=== PATIENT | female | born 1950 | race Caucasian/White ===

== ENCOUNTER 2024-11-26 08:29 | Emergency (ER) | payer MEDICARE, SELFPAY ==
[2024-11-26 08:37] VITALS: BP 144/103; PULSE 95; TEMP 37.2; O2SAT 95; BMI 34.2
[2024-11-26 08:42] VITALS: O2SAT 98
--- NOTE | 2024-11-26 08:48 | XR_ITS ---
The [address] [address] Patient Name: MOY JARQUIN MRN: [id number] date: 1950 Sex: F Assigned Patient Location: ED.MAIN Current Patient Location: ED.MAIN Accession/Order Number: [id number] Exam Date: 11/26/2024 09:30 Report Date: 11/26/2024 09:31 At the request of: ASHLY THOMAS MD Procedure: XR chest 1V Plain film chest Single view HISTORY: Cough for 2 weeks COMPARISON: 10/23/2020 FINDINGS: SUPPORT DEVICES: None POSTSURGICAL CHANGES: None HEART: Within normal limits PULMONARY JONAS: Within normal limits MEDIASTINUM: Unremarkable LUNGS AND PLEURA: No acute lung process, pleural effusion or pneumothorax identified. Minor interstitial changes BONY STRUCTURES: Intact ADDITIONAL FINDINGS None XR/XR chest 1V IMPRESSION: No acute process. Impression dictated by: Alejandro Middleton M.D. 11/26/2024 9:31 AM Dictation Location: [employer] Electronically authenticated by: [id number] Y Date: 11/26/2024 09:31
--- NOTE | 2024-11-26 08:50 | ED.GENADUL1 ---
HPI HPI - General Adult General Chief complaint: Upper Respiratory Infection Stated complaint: URTI COMPLAINTS Time Seen by Provider: 11/26/24 08:41 Source: patient Mode of arrival: Wheelchair Limitations: no limitations History of Present Illness HPI narrative: 74-year-old female presents to the emergency department for chief complaint of cough which she has had for 2 weeks. It has been nonproductive and she has not had a fever. No hemoptysis. She states several family members were ill. Related Data Home Medications �Medication �Instructions �Recorded �Confirmed furosemide 20 mg tablet 20 mg PO .q48hr 11/26/24 11/26/24 potassium citrate 10 mEq (1,080 10 meq PO DAILY 11/26/24 11/26/24 mg) tablet,extended release valsartan 40 mg tablet 40 mg PO BID 11/26/24 11/26/24 Previous Rx's �Medication �Instructions �Recorded sulfamethoxazole 800 1 tab PO BID 10 days #20 tabs 11/26/24 mg-trimethoprim 160 mg tablet (Bactrim DS) Allergies Allergy/AdvReac Type Severity Reaction Status Date / Time erythromycin base Allergy Mild Hives Verified 11/26/24 08:41 Iodinated Contrast Media Allergy Mild Hives Verified 11/26/24 08:41 Penicillins Allergy Mild Hives Verified 11/26/24 08:41 Opioid HPI Opioid Management Most Recent Opioid Data: Last Pain Scale 6 Today, 08:37 Review of Systems ROS Narrative A ten point review of systems is negative except as noted above. PFSH PFSH Social History Little interest or pleasure in doing things: not at all Feeling down, depressed, or hopeless: not at all Exam Narrative Exam Narrative: Nurses note and vital signs reviewed and patient is not hypoxic. General: The patient appears well and in no apparent distress. Patient is resting comfortably on cart. Skin: Warm, dry, no pallor noted. There is no rash noted. Head: Normocephalic, atraumatic Eye: Normal conjunctiva, no drainage Ears, Nose, Mouth, and Throat: oral mucosa is moist. Nares patent. Cardiovascular: Regular Rate and Rhythm Respiratory: Patient is in no distress, no accessory muscle use, lungs are clear to auscultation, no wheezing, rales or rhonchi Back: non-tender GI: Soft and nontender Musculoskeletal: The patient has no evidence of calf tenderness, no pitting edema, symmetrical pulses noted bilaterally Neurological: A&O, normal speech Psychiatric: Cooperative Constitutional Vital Signs, click to edit/add: Last Vital Signs Temp 98.9 F 11/26/24 08:37 Pulse 95 H 11/26/24 08:37 Resp 18 11/26/24 08:37 BP 144/103 H 11/26/24 08:37 Pulse Ox 98 11/26/24 08:42 O2 Del Method Room Air 11/26/24 08:42 Course Vital Signs Vital signs: Vital Signs Temperature 98.9 F 11/26/24 08:37 Pulse Rate 95 H 11/26/24 08:37 Respiratory Rate 18 11/26/24 08:37 Blood Pressure 144/103 H 11/26/24 08:37 Pulse Oximetry 95 11/26/24 08:37 Oxygen Delivery Method Room Air 11/26/24 08:37 Temperature 98.9 F 11/26/24 08:37 Pulse Rate 95 H 11/26/24 08:37 Respiratory Rate 18 11/26/24 08:37 Blood Pressure 144/103 H 11/26/24 08:37 Pulse Oximetry 98 11/26/24 08:42 Oxygen Delivery Method Room Air 11/26/24 08:42 Medical Decision Making MDM Narrative Medical decision making narrative: Her chest x-ray is negative. I suspect that her cough is being caused by the valsartan and she will speak to her family doctor. In the event that this is infectious she is prescribed Bactrim. She was cautioned however that it is more likely the medication. Treatment diagnosis and follow-up were discussed with the patient. Differential Diagnosis Differential Diagnosis: URI, pneumonia, medication side effect Imaging Data Chest x-ray: Radiologist's impression: ITS Impressions Chest X-Ray 11/26/24 08:48 IMPRESSION: No acute process. Impression dictated by: Alejandro Middleton M.D. 11/26/2024 9:31 AM Dictation [facility] Electronically authenticated by: [id number] Y Date: 11/26/2024 09:31 Discharge Plan Discharge Chief Complaint: Upper Respiratory Infection Clinical Impression: Medication side effect Patient Disposition: Home, Self-Care Time of Disposition Decision: 10:03 Condition: Good Mode of Transportation: Private Vehicle Prescriptions / Home Meds: New sulfamethoxazole-trimethoprim [Bactrim DS] 800-160 mg tablet 1 tab PO BID 10 Days Qty: 20 0RF No Action furosemide 20 mg tablet 20 mg PO .q48hr potassium citrate 10 mEq (1,080 mg) tablet extended release 10 meq PO DAILY valsartan 40 mg tablet 40 mg PO BID Print Language: Slovenian Instructions: Adverse Drug Reaction (ED) Additional Instructions: I suspect that the valsartan is causing your cough. Speak to your prescribing physician about that issue. Referrals: Tamica Amezquita NP [Primary Care Provider, Family Practice] - 1 week
== END 2024-11-26 10:22 | disposition home or self-care (01) ==
PROVIDERS: Emergency Provider Emergency Medicine; PCP Nurse Practitioner
DX: R05.9 Cough, unspecified (principal); T46.5X5A Adverse effect of other antihypertensive drugs, initial encounter
CPT/HCPCS: 71045; 99283

== ENCOUNTER 2024-12-02 08:39 | Outpatient (OUT) | payer MEDICARE, SELFPAY ==
--- OUTSIDE RECORDS SUMMARY | 2023-07-14 05:00 | XMS_ITS ---
Author Organization [facility] Address [address] [place] [address] Care Team Providers Care Advertising Operations Manager Name Role Phone Yasmany, August Unavailable [phone] REASON FOR VISIT Est Care Encounters Encounter Location Date Provider Diagnosis [address] [place] [address] 07/14/2023August Yasmany Plan Of Treatment No Information Progress Notes * Sneha GRISSOMDOB:1950 ( 74 yo F)Acc No.[id number]:07/14/2023 Progress Notes Patient: Sneha MORALES Provider: CONCETTA Fraga :1950 A ge:72 Y S ex:Female Date:07/14/2023 Address:[address], [address], [facility] Subjective: * Chief Complaints: * 1 . Est Care. * Medical History: Objective: * Vitals: Assessment: Plan: * Treatment: * Care Plan Details* * Electronic signature of TARIQ Acuña, CONCETTA on 12/02/2024 at 08:45 AM EDT Sign off status: Pending * Provider: CONCETTA Fraga Date: 0 07/14/2023 Generated for Denise la/Alfonso/Aditiitting on: 0 12/02/2024 08:45 AM EDT
--- OUTSIDE RECORDS SUMMARY | 2023-07-14 05:00 | XMS_ITS ---
Author Organization [facility] Address [address] [address] Care Team Providers Care Hand Violin Maker Name Role Phone Migration, Provider Unavailable Unavailable REASON FOR VISIT Est Care Encounters Encounter Location Date Provider Diagnosis [facility] - [address] [place] [address] 07/14/2023 Provider Migration Plan Of Treatment No Information Progress Notes * Sneha GRISSOMDOB:1950 ( 74 yo F)Acc No.[id number]:07/14/2023 Progress Notes Patient: Sneha MORALES Provider: :1950 A ge:72 Y S ex:Female Date:07/14/2023 Address:[facility] [address] Subjective: * Chief Complaints: * 1 . Est Care. * Medical History: Objective: * Vitals: Assessment: Plan: * Treatment: * Care Plan Details* * Electronic signature of Prov ider Migration on 12/02/2024 at 08:45 AM EDT Sign off status: Pending * Provider: Date: 07/14/2023 Generated for Denise la/Alfonso/Ericksmitting on: 12/02/2024 08:45 AM EDT
--- OUTSIDE RECORDS SUMMARY | 2023-11-09 06:25 | XMS_ITS ---
Author Organization [facility] Address [address] [place] [address] Care Team Providers Care Edge Sander Name Role Phone NONE, NONE Primary Care Provider TAE Adamson Unavailable [phone] ALLERGIES No Known Allergies REASON FOR VISIT Patient here for metal patch application MEDICATIONS Medication SIG (Take, Route, Frequency, Duration) Notes Start Date End Date Status Metoprolol Tartrate 50 MG 1 tablet with food Orally Twice a day Active glipiZIDE 5 MG 1 tablet 30 minutes before breakfast Orally Once a day Active Atorvastatin Calcium 80 MG 1 tablet Oral ly Once a day Active Clopidogrel Bisulfate 75 MG 1 tablet Ora lly Once a day Active Isosorbide Dinitrate 30 MG 1 tablet Oral ly Twice a day Active Famotidine Active amLODIPine Besylate 5 MG 1 tablet Orally Once a day Active Albuterol Sulfate HFA 108 (90 Base) MCG/ACT 1 puff as needed Inhalation every 4 hrs Active Baby Aspirin Active SOCIAL HISTORY Tobacco Use: Social History Observation Description Date Details (start date - stop date) Never Smoker NA - NA Sex Assigned At : Social History Observation Description Sex Assigned At Unknown Tobacco Use/Smoking Question Answer Notes Are you a nonsmoker Alcohol Screen (Audit-C) Question Answer Notes Did you have a drink contain ing alcohol in the past year? Yes How often did you have a dri nk containing alcohol in the past year? 2 to 4 times a month (2 points) How many drinks did you have on a typical day when you were drinking in the past year? 1 or 2 drinks (0 point) How often did you have 6 or more drinks on one occasion in the past year? Never (0 point) Points 2 Interpretation Negative VITAL SIGNS Temperature 97.8 degrees Fahrenheit 11/09/19 24 Blood pressure systolic 190 mm Hg 11/09/19 24 Blood pressure diastolic 84 mm Hg 024 Heart Rate 69 /min 11/09/2023 Height 59 in 11/09/2023 Weight 155 lbs 11/09/2023 BMI 31.3 kg/m2 11/09/2023 Oximetry 98 % 11/09/2023 Taken by TB Encounters Encounter Location Date Provider Diagnosis [facility] [address] [place] [address] 11/09/2023 TAE FROST Cardiac murmur, unspecified R01.1 ; Other hyperlipidemia E78.49 ; Essential (primary) hypertension I10 and Allergic contact dermatitis, unspecified cause L23.9 ASSESSMENTS Encounter Date Diagnosis Assessment Notes Treatment Notes Treatment Clinical Notes Section Notes 11/09/2023 Cardiac murmur, unspecified (ICD-10 - R01.1) Follow up on the nickel aller 11/09/2023 Other hyperlipidemia (ICD-10 - E78.49) per pcp 11/09/2023 Essential (primary) hypertension (ICD-10 - I10) Defer management to pt's PCP 11/09/2023 Allergic contact dermatitis, unspecified cause (ICD-10 - L23.9) Patient has a history of nickel allergy and previous bunion surgery, which required metal removal due to allergic reaction. The patient is scheduled for heart valve surgery, and the surgeon needs to know about any potential metal allergies. Plan to perform a comprehensive metal allergy testing to identify any metals the patient cannot tolerate. Inform the surgeon of any positive results. PLAN OF TREATMENT Next Appt Details Follow Up: 4 Weeks, Reason: Progress Notes * Sneha GRISSOMDOB:1950 ( 73 yo F)Acc No.[id number]:11/09/2023 PATCH TEST Patient: Sneha GRISSOM Provider: Tae Frost MD :1950 Age:73 Y Sex:Female Date:11/09/2023 Address:[address], [address], [facility] Subjective: * Chief Complaints: * Patient here for metal patch application * HPI: Constitutional: The patient, Sneha, presents today for evaluation of potential metal allergies in preparation for an upcoming heart valve surgery. She has a history of metal allergy, specifically to nickel, which was discovered during a previous bunion surgery. The nickel allergy led to complications, requiring the removal of the metal implant. Following the bunion surgery, Sneha experienced an unexplained loss of function in her other leg, which her foot surgeon could not explain. She believes her knowledge of reflexology contributed to the eventual improvement in her leg function. 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 Sneha reports taking a night term medication before the appointment but denies any stress or anxiety related to doctor's appointments. * ROS: Gen: No Fevers, chills or night sweats Nose: (+) Runny nose, sneezing and congestion Eyes: (+) Itchy and watery eyes with redness Ears: Denies Ear Fullness and pain Lungs: Denies Coughing or wheezing Skin: Denies new rashes. * Medical History: * Surgical History: Bunion Removal * Hospitalization/Major Diagno stic Procedure: Denies Past Hospitalization * Family History: Father: . Mother: . 3 brother(s) . 1 daughter(s) . . * Social History: Tobacco Use: Tobacco Use/Smoking Are you a nonsmoker Drugs/Alcohol: Drugs Have you used drugs other than those for medical reasons in the past 12 months? No Alcohol Screen (Audit-C) Did you have a drink containing alcohol in the past year? Yes How often did you have a drink containing alcohol in the past year? 2 to 4 times a month (2 points) How many drinks did you have on a typical day when you were drinking in the past year? 1 or 2 drinks (0 point) How often did you have 6 or more drinks on one occasion in the past year? Never (0 point) Points 2 Interpretation Negative Caffeine Intake: none, 1-2 cups per day Do you smoke marijuana?: Denies. Do you drink alcohol?: Yes, Socially. * Medications: TakingBaby Aspirin Albuterol Sulfate HFA 108 (90 Base) MCG/ACT Aerosol Solution 1 puff as needed Inhalation every 4 hrs amLODIPine Besylate 5 MG Tablet 1 tablet Orally Once a day Famotidine Isosorbide Dinitrate 30 MG Tablet 1 tablet Orally Twice a day Clopidogrel Bisulfate 75 MG Tablet 1 tablet Orally Once a day Atorvastatin Calcium 80 MG Tablet 1 tablet Orally Once a day glipiZIDE 5 MG Tablet 1 tablet 30 minutes before breakfast Orally Once a day Metoprolol Tartrate 50 MG Tablet 1 tablet with food Orally Twice a day Medication List reviewed and reconciled with the patientTaking Baby Aspirin Taking Albuterol Sulfate HFA 108 (90 Base) MCG/ACT Aerosol Solution 1 puff as needed Inhalation every 4 hrs Taking amLODIPine Besylate 5 MG Tablet 1 tablet Orally Once a day Taking Famotidine Taking Isosorbide Dinitrate 30 MG Tablet 1 tablet Orally Twice a day Taking Clopidogrel Bisulfate 75 MG Tablet 1 tablet Orally Once a day Taking Atorvastatin Calcium 80 MG Tablet 1 tablet Orally Once a day Taking glipiZIDE 5 MG Tablet 1 tablet 30 minutes before breakfast Orally Once a day Taking Metoprolol Tartrate 50 MG Tablet 1 tablet with food Orally Twice a day Medication List reviewed and reconciled with the patient * Allergies: N.K.D.A.no[Allergies Verified] Objective: * Vitals: Temp:97.8F, HR:69/min, BP:190/84mm Hg, Wt:155lbs, BMI:31.3, Ht: 59 in, Oxygen sat %:98% Taken by TB. * Examination: Functional Status: GEN: A&Ox3, NAD H EENT: EOM intact and trachea midline L ungs: CTA without wheezing or rhonchi H eart: RRR w/out murmurs L ower Extremities: No Lower extremity edema. Assessment: * Assessment: 1. Cardiac murmur, unspecified - R01.1 (Primary), Follow up on the nickel aller 2. Other hyperlipidemia - E78.49, per pcp 3. Essential (primary) hypertension - I10, Defer management to pt's PCP 4. Allergic contact dermatitis, unspecified cause - L23.9, Patient has a history of nickel allergy and previous bunion surgery, which required metal removal due to allergic reaction. The patient is scheduled for heart valve surgery, and the surgeon needs to know about any potential metal allergies. Plan to perform a comprehensive metal allergy testing to identify any metals the patient cannot tolerate. Inform the surgeon of any positive results. Plan: * Treatment: * Procedure Codes: * Preventive Medicine: Counseling: BP Management: REFERRAL TO ALTERNATIVE / PRIMARY CARE PROVIDER: Defer to primary physician for care BMI Care goal follow-up plan: Above Normal BMI Follow-up Defer to primary care provider * Follow Up: 4 Weeks * Images * [id number] [id number] * Sign off status: Completed true * Provider: Tae Frost MD Date: 11/09/2023 History and Physical Notes * HPI (History of Present Illness) Category Sub-Category Detail Notes Category Not es Constitutional The patient, Sneha, presents today for evaluation of potential metal allergies in preparation for an upcoming heart valve surgery. She has a history of metal allergy, specifically to nickel, which was discovered during a previous bunion surgery. The nickel allergy led to complications, requiring the removal of the metal implant. Following the bunion surgery, Sneha experienced an unexplained loss of function in her other leg, which her foot surgeon could not explain. She believes her knowledge of reflexology contributed to the eventual improvement in her leg function. 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 Sneha reports taking a night term medication before the appointment but denies any stress or anxiety related to doctor's appointments. Examination Category Sub-Category Detail Notes Category Not es Functional Status GEN: A&Ox3, NAD HEENT: EOM intact and trachea midline Lungs: CTA without wheezing or rhonchi Heart: RRR w/out murmurs Lower Extremities: No Lower extremity edema
--- OUTSIDE RECORDS SUMMARY | 2023-11-11 06:25 | XMS_ITS ---
Author Organization [facility] Address [address] [facility] [place] [address] Care Team Providers Care Freelance Patternmaker Name Role Phone NONE, NONE Primary Care Provider TAE Adamson Unavailable [phone] ALLERGIES No Known Allergies REASON FOR VISIT Patient is here for a 30 patch removal. She will discuss results with Dr. Tae Frost at a later date MEDICATIONS Medication SIG (Take, Route, Frequency, Duration) Notes Start Date End Date Status Isosorbide Dinitrate 30 MG 1 tablet Oral ly Twice a day Active Clopidogrel Bisulfate 75 MG 1 tablet Ora lly Once a day Active Atorvastatin Calcium 80 MG 1 tablet Oral ly Once a day Active glipiZIDE 5 MG 1 tablet 30 minutes before breakfast Orally Once a day Active Metoprolol Tartrate 50 MG 1 tablet with food Orally Twice a day Active Baby Aspirin Active Albuterol Sulfate HFA 108 (90 Base) MCG/ACT 1 puff as needed Inhalation every 4 hrs Active amLODIPine Besylate 5 MG 1 tablet Orally Once a day Active Famotidine Active VITAL SIGNS Temperature 97.1 degrees Fahrenheit 11/11/19 24 Blood pressure systolic 156 mm Hg 11/11/19 24 Blood pressure diastolic 69 mm Hg 024 Heart Rate 67 /min 11/11/2023 Height 59 in 11/11/2023 Weight 155 lbs 11/11/2023 BMI 31.3 kg/m2 11/11/2023 Oximetry 97 % 11/11/2023 Taken by GERI Encounters Encounter Location Date Provider Diagnosis [facility] [address] [place] [address] 11/11/2023 TAE FROST Allergic contact dermatitis, unspecified cause L23.9 ASSESSMENTS Encounter Date Diagnosis Assessment Notes Treatment Notes Treatment Clinical Notes Section Notes 11/11/2023 Allergic contact dermatitis, unspecified cause (ICD-10 - L23.9) PLAN OF TREATMENT No Information Progress Notes * Sneha GRISSOMDOB:1950 ( 73 yo F)Acc No.[id number]:11/11/2023 Removal of Patch test Patient: Sneha GRISSOM Provider: Tae Frost MD :1950 Age:73 Y Sex:Female Date:11/11/2023 Address:[address] [place] [address] , [address] Subjective: * Chief Complaints: * 1. Patient is here for a 30 patch removal. She will discuss results with Dr. Tae Frost at a later date. * Medical History: Heart Disease, Diabetes, Hypercholesterolemia, Hypertension. * Medications: Taking Baby Aspirin , Taking Albuterol Sulfate HFA 108 (90 Base) MCG/ACT Aerosol Solution 1 puff as needed Inhalation every 4 hrs , Taking amLODIPine Besylate 5 MG Tablet 1 tablet Orally Once a day , Taking Famotidine , Taking Isosorbide Dinitrate 30 MG Tablet 1 tablet Orally Twice a day , Taking Clopidogrel Bisulfate 75 MG Tablet 1 tablet Orally Once a day , Taking Atorvastatin Calcium 80 MG Tablet 1 tablet Orally Once a day , Taking glipiZIDE 5 MG Tablet 1 tablet 30 minutes before breakfast Orally Once a day , Taking Metoprolol Tartrate 50 MG Tablet 1 tablet with food Orally Twice a day , Medication List reviewed and reconciled with the patient * Allergies: N.K.D.A. Objective: * Vitals: Temp:97.1F, HR:67/min, BP:156/69mm Hg, Wt:155lbs, BMI:31.3, Ht: 59 in, Oxygen sat %:97% Taken by GERI. Assessment: * Assessment: 1. Allergic contact dermatitis, unspecified cause - L23.9 Plan: * Treatment: * Procedure Codes: 98535 PRICK TESTS * Images * [id number] [id number] [id number].jpg * Sign off status: Completed true * Provider: Tae Frost MD Date: 11/11/2023
--- OUTSIDE RECORDS SUMMARY | 2023-11-12 06:25 | XMS_ITS ---
Author Organization [facility] Address [address] [facility] [place] [address] Care Team Providers Care Scientific Specialist Name Role Phone NONE, NONE Primary Care Provider TAE Adamson Unavailable [phone] ALLERGIES No Known Allergies REASON FOR VISIT Patient is here for 30 Metal Patch Final Reading possible contact dermatitis MEDICATIONS Medication SIG (Take, Route, Frequency, Duration) Notes Start Date End Date Status Isosorbide Dinitrate 30 MG 1 tablet Oral ly Twice a day Active Atorvastatin Calcium 80 MG 1 tablet Oral ly Once a day Active Clopidogrel Bisulfate 75 MG 1 tablet Ora lly Once a day Active Metoprolol Tartrate 50 MG 1 tablet with food Orally Twice a day Active glipiZIDE 5 MG 1 tablet 30 minutes before breakfast Orally Once a day Active Albuterol Sulfate HFA 108 (90 Base) MCG/ACT 1 puff as needed Inhalation every 4 hrs Active Baby Aspirin Active Famotidine Active amLODIPine Besylate 5 MG 1 tablet Orally Once a day Active VITAL SIGNS Temperature 97.6 degrees Fahrenheit 11/12/19 24 Blood pressure systolic 166 mm Hg 11/12/19 24 Blood pressure diastolic 89 mm Hg 024 Heart Rate 67 /min 11/12/2023 Height 59 in 11/12/2023 Weight 155 lbs 11/12/2023 BMI 31.3 kg/m2 11/12/2023 Oximetry 97 % 11/12/2023 Taken by GERI Encounters Encounter Location Date Provider Diagnosis [facility] [address] [facility] [place] [address] 11/12/2023 TAE FROST Cardiac murmur, unspecified R01.1 ; Other hyperlipidemia E78.49 ; Essential (primary) hypertension I10 and Allergic contact dermatitis, unspecified cause L23.9 ASSESSMENTS Encounter Date Diagnosis Assessment Notes Treatment Notes Treatment Clinical Notes Section Notes 11/12/2023 Cardiac murmur, unspecified (ICD-10 - R01.1) not allergic to seth. allergic to rhodium. Would avoid this. 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 She should inform her surgeons about the rhodium allergy. Provide her with a list of metals to avoid, including rhodium. Instruct her to take a picture of her back on Thursday and contact the clinic if any new reactions appear. PLAN OF TREATMENT Next Appt Details Follow Up: prn, Reason: Progress Notes * Sneha GRISSOMDOB:1950 ( 73 yo F)Acc No.[id number]:11/12/2023 Patch test Progress Note Patient: Sneha GRISSOM Provider: Tae Frost MD :1950 Age:73 Y Sex:Female Date:11/12/2023 Address:[facility] [address] [place], [place] [address] Subjective: * Chief Complaints: * Patient is here for 30 Metal Patch Final Reading possible contact dermatitis * HPI: Constitutional: The patient, Sneha, presents with a history of metal allergy, specifically mentioning issues with nickel and titanium. She reports having rods and sayda placed in her toe, which subsequently became infected and puss-filled. The infection spread, leading to the removal of the rods and sayda. Sneha also mentions experiencing pain in her foot due to a forgotten staple. A patch test was performed, and the only metal that showed a reaction was rhodium. Jay Jay campos also reports difficulty breathing through her nose, particularly on one side. She denies having polyps or previous sinus surgery. She has experienced this nasal breathing issue for much of her life and sometimes struggles to take a deep breath through her nose. * ROS: Gen: No Fevers, chills or night sweats Nose: (+) Runny nose, sneezing and congestion Eyes: (+) Itchy and watery eyes with redness Ears: Denies Ear Fullness and pain Lungs: Denies Coughing or wheezing Skin: Denies new rashes. * Medical History: * Medications: TakingBaby Aspirin Albuterol Sulfate HFA [...] * Allergies: N.K.D.A.no[Allergies Verified] Objective: * Vitals: Temp:97.6F, HR:67/min, BP:166/89mm Hg, Wt:155lbs, BMI:31.3, Ht: 59 in, Oxygen sat %:97% Taken by GERI. * Examination: Functional Status: GEN: A&Ox3, NAD H EENT: EOM intact and trachea midline L ungs: CTA without wheezing or rhonchi H eart: RRR w/out murmurs L ower Extremities: No Lower extremity edema. Assessment: * Assessment: 1. Cardiac murmur, unspecified - R01.1 (Primary), not allergic to seth. allergic to rhodium. Would avoid this. 2. Other hyperlipidemia - E78.49, per pcp 3. Essential (primary) hypertension - I10, manage with meds 4. 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 She should inform her surgeons about the rhodium allergy. Provide her with a list of metals to avoid, including rhodium. Instruct her to take a picture of her back on Thursday and contact the clinic if any new reactions appear. Plan: * Treatment: * Procedure Codes: * Follow Up: prn * Images * [id number] * Sign off status: Completed true * Provider: Tae Frost MD Date: 11/12/2023 History and Physical Notes * HPI (History of Present Illness) Category Sub-Category Detail Notes Category Not es Constitutional The patient, Sneha, presents with a history of metal allergy, specifically mentioning issues with nickel and titanium. She reports having rods and sayda placed in her toe, which subsequently became infected and puss-filled. The infection spread, leading to the removal of the rods and sayda. Sneha also mentions experiencing pain in her foot due to a forgotten staple. A patch test was performed, and the only metal that showed a reaction was rhodium. Sneha also reports difficulty breathing through her nose, particularly on one side. She denies having polyps or previous sinus surgery. She has experienced this nasal breathing issue for much of her life and sometimes struggles to take a deep breath through her nose. Examination Category Sub-Category Detail Notes Category Not es Functional Status GEN: A&Ox3, NAD HEENT: EOM intact and trachea midline Lungs: CTA without wheezing or rhonchi Heart: RRR w/out murmurs Lower Extremities: No Lower extremity edema
--- OUTSIDE RECORDS SUMMARY | 2024-11-20 12:10 | XMS_ITS ---
Author Organization [facility] Address [address] [place] [address] Care Team Providers Care [facility] Name Role Phone Gian Gonzalez Primary Care Provider REASON FOR VISIT HEDIS - LABS - CBP(LVMx1) Encounters Encounter Location Date Provider Diagnosis [facility] [address], [place] [address] 11/20/2024 Gian Bautista Plan Of Treatment No Information Progress Notes * MOY JARQUINDOB:1950 ( 74 yo F)Acc No.[id number]:11/20/2024 Patient: MOY MORALES :1950 A ge:74 Y S ex:Female Address:[facility] [address] [address] * true * Date: Generated for Denise la/Alfonso/eTransmitting on: 0 12/02/2024 08:45 AM EDT
--- OUTSIDE RECORDS SUMMARY | 2024-12-02 08:44 | XMS_ITS | Patient Health Record ---
Author Organization [facility] Address [address] [place] [address] [address] [place] [id number] Support Name Relationship Address Phone Sneha Grissom Guarantor Unknown [phone] Reason For Referral No Information Plan Of Treatment No Information Insurance Providers Payer Name Payer Address Payer Phone Subscriber Number Group Number Insured Name Patient Relationship to Insured Coverage Start Date Coverage End Date [employer] [address] [address] [place] [address] [id number] Sneha Grissom Self - patient is the insured
--- OUTSIDE RECORDS SUMMARY | 2024-12-02 08:44 | XMS_ITS | Clinical Summary ---
Author Organization [facility] Address [address] [place] [id number] Care Team Providers Care Battery Plate Remover Name Role Phone Pcp, No Primary Care Provider Unavailabl Channing Fisher Unavailable Unavailable Allergies Active Allergy Reactions Criticality Noted Date Comments Erythromycin Rash Low 12/08/2016 Gabapentin 04/02/2024 Brain fog, patient felt like she was drunk Iodine Rash Low 11/07/2020 Penicillins Rash Low 06/18/2013 Medications amLODIPine (Norvasc) 5 MG tablet Take 1 tablet (5 mg total) by mouth 1 (one) time each day. 3 Active atorvastatin (Lipitor) 80 MG tablet Take 1 tablet (80 mg total) by mouth 1 (one) time each day. 4 Active clopidogrel (Plavix) 75 MG tablet Take 1 tablet (75 mg total) by mouth 1 (one) time each day. 4 Active famotidine (Pepcid) 20 MG tablet Take 1 tablet (20 mg total) by mouth in the morning and 1 tablet (20 mg total) before bedtime. 3 Active glipiZIDE (Glucotrol) 5 MG tablet TAKE 1 TABLET BY MOUTH TWICE DAILY. DO NOT TAKE THIS WITH JARDIANCE 3 Active losartan (Cozaar) 25 MG tablet Take 1 tablet (25 mg total) by mouth 1 (one) time each day. 4 Active isosorbide mononitrate ER (Imdur) 30 MG 24 hr tablet Take 1 tablet (30 mg total) by mouth 1 (one) time each day. 3 Active metoprolol succinate XL (Toprol-XL) 50 MG 24 hr tablet Take 1 tablet (50 mg total) by mouth 1 (one) time each day. 3 Active nitroglycerin (Nitrostat) 0.4 MG SL tablet TAKE NEEDED FOR CHEST PAIN UP TO 3 DOSES. IMMEDIATELY CALL 911 AFTER FIRST DOSE 4 Active Social History Tobacco Use Types Packs/Day Years Used Date Smoking Tobacco: Never Smokeless Tobacco: Never Tobacco Cessation:Counseling Given: Not Answered Alcohol Use Standard Drinks/Week Comments Yes 0 (1 standard drink = 0.6 oz pur e alcohol) occassional Comments Unknown Sex and Gender Information Value Date Recorded Sex Assigned at Not on file Legal Sex Female 5:46 PM EDT Gender Identity Not on file Sexual Orientation Not on file Last Filed Vital Signs Vital Sign Reading Time Taken Comments Blood Pressure 176/99 04/02/2024 2:42 PM EST Pulse 62 04/02/2024 2:42 PM EST Temperature 36.5 C (97.7 F) 04/02/2024 2:42 PM EST Respiratory Rate 18 04/02/2024 2:42 PM EST Oxygen Saturation 99% 04/02/2024 2:42 PM EST Inhaled Oxygen Concentration - - Weight 72.9 kg (160 lb 11.5 oz) 024 10:47 AM EST Height 144.8 cm (4' 9 ) 04/02/2024 10:4 7 AM EST Body Mass Index 34.78 04/02/2024 10:47 AM EST Plan of Treatment Health Maintenance Due Date Last Done Comments Bone Density Scan 1951 CT Colonography 1951 Cologuard 1950 Colonoscopy 1951 Colorectal Cancer Screening 1951 Diabetes: Hemoglobin A1C 1951 FIT 1951 FOBT 1951 Lipid Panel 1950 Medicare Annual Wellness (AWV) 1950 Sigmoidoscopy 1951 Diabetes: Foot Exam 08/01/1961 Diabetes: Retinopathy Screening 08/01/1961 Depression Screening 1963 DTaP/Tdap/Td Vaccines (1 - Tdap) 08/01/1970 Diabetes: Urine Protein Screening 08/01/1970 Mammogram 1991 Pneumococcal Vaccine: 50+ Ye ars (1 of 1 - PCV) 08/01/2001 Zoster Vaccines (1 of 2) 08/01/2001 COVID-19 Vaccine (1 - 2023-2 5 season) 2024 Influenza Vaccine (#1) 2025 Respiratory Syncytial Virus (RSV) 60 years and older and/or patients (1 - 1-dose 75+ series) 08/01/2026 HPV Vaccines Aged Out No longer eligi ble based on patient's age to complete this topic Hepatitis A Vaccines Aged Out No long er eligible based on patient's age to complete this topic Hepatitis B Vaccines Aged Out No long er eligible based on patient's age to complete this topic Meningococcal B Vaccine Aged Out No l onger eligible based on patient's age to complete this topic Meningococcal Vaccine Aged Out No lewis carlito eligible based on patient's age to complete this topic Respiratory Syncytial Virus (RSV) <20 months Aged Out No longer eligible b ased on patient's age to complete this topic Insurance [employer] MEDICARE [id number] [place] [id number] Care Teams Battery Plate Remover Relationship Specialty Start Date End Date Pcp, No PCP - General 09/08/23 Channing Thornton Nurse Navigator 04/05/24
--- OUTSIDE RECORDS SUMMARY | 2024-12-02 08:45 | XMS_ITS | Encounter Summary ---
Author Organization [facility] Address [address] [place] [address] Phone Care Team Providers Care Shovel Engineer Name Role Phone Unavailable Primary Care Provider Unavailabl e Encounter Details Date Type Department Care Team (Late st Contact Info) Description 10/25/2020 Orders Only [facility] [address] [place] [address] Conversion, Onbase Social History Tobacco Use Types Packs/Day Years Used Date Smoking Tobacco: Never Assessed Comments Unknown Sex and Gender Information Value Date Recorded Sex Assigned at Not on file Legal Sex Female 5:14 AM EST Gender Identity Not on file Sexual Orientation Not on file documented as of this encounter Plan of Treatment Scheduled Orders Name Type Priority Associated Diagnoses Orde r Schedule OUTSIDE LAB SCAN Lab Ordered: 10/25/2020 documented as of this encounter Visit Diagnoses Not on filedocumented in this encounter
--- OUTSIDE RECORDS SUMMARY | 2024-12-02 08:45 | XMS_ITS | Patient Health Record ---
Author Organization UNLISTED FACILITY Address [address] [place] [address] [place] [address] Care Team Providers Care Journeyman Operator Assistant Name Role Phone Gian Gonzalez Primary Care Provider [phone] Trinity Alvarez MD Unavailable Deidre Gaytan Unavailable [phone] Husam Knapp Unavailable Jo Ann Owens Unavailable [phone] Hien Fine Unavailable [phone] Keyana Garcia Unavailable [phone] Allergies Allergen (clinical drug ingredient) Drug/Non Drug Allergy documented on EMR Reaction Allergy Type Onset Date Status Penicillin rash Drug Allergy Active Results Component Value Reference Range Notes Diabetes Patient Education Reviewed date:05/24/2024 07:49:46 PM Interpretation: Performing Lab:[facility], [address] [place] [id number], Phone - [phone], Director - Carin Notes/Report: PDF Not applicable [facility] CKD Program Reviewed date:05/24/2024 07:49:46 PM Interpretation: Performing Lab:[facility], [address] [place] [id number], Phone - [phone], Director - Domo Notes/Report: Interpretation Note ----- CHRONIC KIDNEY DISEASE: EGFR, BLOOD PRESSURE, AND PROTEINURIA ASSESSMENT Estimated GFR has decreased, was 45 and now is 37 mL/min/1.73mE2. Current eGFR corresponds to CKD stage 3b. Potassium is within goal and has risen, was 3.8 and now is 4.2 mmol/L. Glycemic control (HB A1c: 10.9 %) is not within goal and additional action is indicated. Previous urine protein measurement was normal. EGFR, BLOOD PRESSURE, AND PROTEINURIA TREATMENT SUGGESTIONS - Based upon current eGFR, patient is at high risk for adverse outcomes such as CKD progression, CVD, and mortality. Guidelines recommend treating patients with type 2 diabetes and CKD with an SGLT2 inhibitor for cardiorenal protection. Guidelines recommend a target blood pressure of 120/80 mmHg or less to reduce cardiovascular risk and CKD progression. EGFR, BLOOD PRESSURE, AND PROTEINURIA FOLLOW-UP - fasting Renal Panel within 6 months; Spot Urine Panel (Albumin preferred) within 7 months; Hemoglobin A1C within 3 months; BONE and MINERAL ASSESSMENT Calcium is within goal and has not changed significantly, was 9.7 and now is 9.5 mg/dL. Carbon Dioxide is within goal and has risen, was 20 and now is 23 mmol/L. Guidelines recommend the measurement of 25-hydroxy vitamin D in patients with CKD. BONE and MINERAL TREATMENT SUGGESTIONS - Interpretations require simultaneous measurements of serum calcium and phosphorus. BONE and MINERAL FOLLOW-UP - fasting PTH with Renal Panel and 25-Hydroxy Vitamin D are recommended by guidelines, at least yearly; LIPIDS ASSESSMENT Most recent order does not include a fasting Lipid Panel. LIPIDS FOLLOW-UP - fasting Lipid Panel within 7 months; ANEMIA ASSESSMENT Hemoglobin is normal and has not changed significantly, was 13.3 and now is 13.3 g/dL. Hemoglobin target assumes LUCY is not in use. ANEMIA TREATMENT SUGGESTIONS - No specific change of treatment is indicated at this time. ANEMIA FOLLOW-UP - CBC within 12 months; ----- DISCLAIMER These assessments and treatment suggestions are provided as a convenience in support of the physician-patient relationship and are not intended to replace the physician's clinical judgment. They are derived from national guidelines in addition to other evidence and expert opinion. The clinician should consider this information within the context of clinical opinion and the individual patient. SEE GUIDANCE FOR CHRONIC KIDNEY DISEASE PROGRAM: Kidney Disease Improving Global Outcomes (KDIGO) clinical practice guidelines are at http://kdigo.org/home/addi rodas/. National Kidney Foundation Kidney Disease Outcomes Quality Initiative (KDOQI (TM)), with its limitations and disclaimers, are at www.kidney.org/professiona floyd/KDOQI. This program is intended for patients who have been diagnosed with stages 3, 4, or pre-dialysis 5 CKD. It is not intended for children, patients, or transplant patients. PDF . Hgb A1c *IN HOUSE* Reviewed date:05/12/2024 12:12:36 PM Interpretation: Performing Lab: Notes/Report: Hemoglobin A1c 10.4 4.8 - 5.9 % Cardiology : 2D Echo with Co tay-Flow Doppler Reviewed date:04/28/2024 09:06:10 AM Interpretation: Performing Lab: Notes/Report: Diabetes Patient Education Reviewed date:03/02/2024 05:09:29 PM Interpretation: Performing Lab:[facility] [address] [id number], Phone - [phone], Director - Carin Notes/Report: PDF . HEMOGLOBIN A1c Reviewed date:03/04/2024 10:19:29 PM Interpretation:Abnormal Performing Lab:[facility], [address] [place] [id number], Phone - [phone], Director - Domo Notes/Report: Hemoglobin A1c 10.7 4.8-5.6 % . Prediabetes: 5.7 - 6.4 Diabetes: >6.4 Glycemic control for adults with diabetes: <7.0 Urinalysis (UA), Complete Wi th Microscopic Examination With Reflex to Urine Culture, Routine Reviewed date:05/26/2024 10:11:10 PM Interpretation: Performing Lab:[facility], [address] [place] [id number], Phone - [phone], Director - Carin Notes/Report: Specific [place] 1.018 1.005-1.030 pH 5.5 5.0-7.5 Urine-Color Yellow Yellow Appearance Cloudy Clear WBC Esterase 2+ Negative Protein Trace Negative/Trace Glucose Negative Negative Ketones Negative Negative Occult Blood Negative Negative Bilirubin Negative Negative Urobilinogen,Semi-Qn 1.0 0.2-1.0 mg/dL Nitrite, Urine Negative Negative Microscopic Examination See below: Micr oscopic was indicated and was performed. Urinalysis Reflex This speci men has reflexed to a Urine Culture. WBC >30 0 - 5 /hpf RBC None seen 0 - 2 /hpf Epithelial Cells (non renal) >10 0 - 10 /hpf Casts None seen None seen /lpf Bacteria Many None seen/Few Urine Culture,Comprehensive Final report Result 1 Mixed urogenital panda Greater than 100,000 colony forming units per mL Comp. Metabolic Panel (14) ( CMP) Reviewed date:05/24/2024 07:49:46 PM Interpretation: Performing Lab:[facility], [address] [place] [address] [id number], Phone - [phone], Director - Carin Notes/Report: Glucose 236 70-99 mg/dL BUN 25 8-27 mg/dL Creatinine 1.50 0.57-1.00 mg/dL eGFR 37 >59 mL/min/1.73 BUN/Creatinine Ratio 17 12-28 Sodium 138 134-144 mmol/L Potassium 4.2 3.5-5.2 mmol/L Chloride 99 96-106 mmol/L Carbon Dioxide, Total 23 20-29 mmol/L Calcium 9.5 8.7-10.3 mg/dL Protein, Total 7.0 6.0-8.5 g/dL Albumin 4.3 3.8-4.8 g/dL Globulin, Total 2.7 1.5-4.5 g/dL Bilirubin, Total 0.8 0.0-1.2 mg/dL Alkaline Phosphatase 126 44-121 IU/L AST (SGOT) 32 0-40 IU/L ALT (SGPT) 27 0-32 IU/L (CBC) With Differential, Ref allegra to Peripheral Smear Review Reviewed date:05/24/2024 07:49:46 PM Interpretation:Normal Performing Lab:[facility], [address] [place] [address] [id number], Phone - [phone], Director - Carin Notes/Report: WBC 9.3 3.4-10.8 x10E3/uL RBC 4.75 3.77-5.28 x10E6/uL Hemoglobin 13.3 11.1-15.9 g/dL Hematocrit 41.4 34.0-46.6 % MCV 87 79-97 fL MCH 28.0 26.6-33.0 pg MCHC 32.1 31.5-35.7 g/dL RDW 13.2 11.7-15.4 % Platelets 202 150-450 x10E3/uL Neutrophils 60 Not Estab. % Lymphs 30 Not Estab. % Monocytes 7 Not Estab. % Eos 3 Not Estab. % Basos 0 Not Estab. % Neutrophils (Absolute) 5.6 1.4-7.0 x10E3/uL Lymphs (Absolute) 2.8 0.7-3.1 x10E3/uL Monocytes(Absolute) 0.6 0.1-0.9 x10E3/uL Eos (Absolute) 0.3 0.0-0.4 x10E3/uL Baso (Absolute) 0.0 0.0-0.2 x10E3/uL Immature Granulocytes 0 Not Estab. % Immature Grans (Abs) 0.0 0.0-0.1 x10E3/uL HEMOGLOBIN A1c Reviewed date:05/26/2024 10:11:10 PM Interpretation:Abnormal Performing Lab:[facility], [address], [place] [id number], Phone - [phone], Director - Domo Notes/Report: Hemoglobin A1c 10.9 4.8-5.6 % . Prediabetes: 5.7 - 6.4 Diabetes: >6.4 Glycemic control for adults with diabetes: <7.0 Reason For Referral Reason Nayla Rolle fax report to [phone].Thank you! 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 Referred Provider Specialty [facility] Procedure 1 Replace aortic valve perq (31482) Procedure 2 2D Echo limited [facility] (38090) General Notes Bridget Zhou 04/11/2024 10:24:12 AM >received, Bridget Zhou 04/11/2024 10:32:42 AM >pending with the ins. notes added, Bridget Zhou 04/18/2024 09:19:34 AM >[facility] called to notify that patient was rescheduled to 04/26 and the end date of the referral is 04/14/24, I email [facility] for the update., MarcoscomBridget 04/18/2024 02:41:04 PM >auth updated and faxed, Bridget Zhou 04/25/2024 03:08:58 PM >received message:Linda Gill Good afternoon I have mrs. Kwan on the line from [facility] for patient moy jarquin 1950 she is requesting we update admission date to 05/03/2024 , , if we are able to extend please , , she is faxing a new request with change in admission date just in case thank you, MarcoscomBridget 04/30/2024 09:18:10 AM >email send to Pankaj, MarcoscomErinna 05/03/2024 08:07:32 AM >auth updated and faxed Referral Priority Routine Referral Appointment Date 05/04/2024 Reason Evaluation and Manag ement Please sent consult note to the fax number [phone] Diagnosis 1 Diabetic retinopathy screening (Z13.5) Referral Organization [facility] Referring Provider First Name Hien Referring Provider Last Name Babatunde Referring Provider [facility] Referred Provider HERMINIA, . Referred Provider Specialty Waste Water Operator Procedure 1 EYE EXAM NEW PATIENT (44806) Procedure 2 EYE EXAM&TX ESTAB PT 1/>VST (49836) General Notes Bridget Zhou 05/12/2024 04:52:08 PM >received, process and faxed, Bridget Zhou 05/13/2024 10:49:54 AM >i received TE as pt. is requesting a new optometry, MarcoscomBridget 05/13/2024 11:01:15 AM >referral updated and faxed .I return the pt. call but i got the vm.I lvm.referral faxed Referral Priority Routine Medications Medication SIG (Take, Route, Frequency, Duration) Notes Start Date End Date Status glipiZIDE 5 MG TAKE 1 TABLET TWICE DAILY FOR DIABETES for 90 Active traMADol HCl 50 MG 1 tablet as needed Orally Once a day for 30 days PRN. controlled substance form signed and on chart. eforsce reviewed before filling. 04/15/2024 Not-Taking Lancets 30G - as directed for 90 days Active True Metrix Air Glucose Meter w/Device as directed for 365 days DM 12/28/2023 Not-Taking amLODIPine Besylate 5 MG 1 tablet Orally Once a day for blood pressure for 100 days Active Clopidogrel Bisulfate 75 MG 1 tablet Orally Once a day for 90 days Active True Metrix Air Glucose test strips monitorblood glucose level daily for 100 days DM Please note: Patient has One Touch. If not covered, please discuss coverage options. 05/03/2024 Active Atorvastatin Calcium 80 MG TAKE 1 TABLET AT BEDTIME FOR CHOLESTEROL for 90 Active OneTouch Delica Plus [id number] - as directed for 90 days Active Vitamin B 12 SUPPLEMENT Not-Ta jhoan Lantus SoloStar 100 UNIT/ML as directed Subcutaneous daily for 90 days Start Lantus 20 Units, add 1 units every day until reach 124 mg/dL in Fasting Blood Sugar. Start Lantus 20 Units, add 1 units every day until reach 124 mg/dL in Fasting Blood Sugar. Max 50 units daily. 5 solostar pen, 3 ml 05/11/2024 Active Metoprolol Succinate ER 50 MG TAKE 1 TABLET ONE TIME DAILY FOR BLOOD PRESSURE/PULSE (ANGINA) for 100 Active Jardiance 25 MG 1 tablet Orally Once a day for 90 days 06/03/2024 Not-Taking Losartan Potassium 25 MG 1 tablet Orally Once a day for blood pressure for 100 days Active Aspirin Adult Low Dose 81 MG 1 tablet Orally Once a day for 90 days heart health 06/03/2024 Active Methocarbamol 750 MG 1 tablet Orally every 4 hrs for 30 days 04/08/2024 Not-Taking Nitroglycerin 0.4 MG as directed Sublingual as needed for chest pain Chest Pain Active Albuterol Sulfate HFA 108 (90 Base) MCG/ACT 1 puff as needed Inhalation every 6 hours as needed for cough, wheezing, shortness of breath for 90 days asthma 04/04/2024 Not-Taking Social History Sexual History Question Answer Notes Had sex in the past 12 months (vaginal, oral, or anal)? No Have you ever had a Sexually transmitted disease ? No AUDIT-C (Standard) Question Answer Notes Did you have a drink containing alcohol in the p ast year? No Points 0 Interpretation Negative Problems Problem Type SNOMED Code ICD Code Onset Dates Problem Status W/U Status Risk Notes Problem 496912990 Mixed hyperlipidemia (E78.2) Active confirmed Problem Body mass index 40+ - severely obese (075139091) BMI 40.0-44.9 adult (Z68.41) Active confirmed Problem Hypertensive heart failure (68211545) Hypertensive heart disease with heart failure (I11.0) Active confirmed 04/26/2024- ECHOCARDIOG YANELI- LVEF of 60%. moderate mitral valve regurgitati on. Trace aortic valve regurgitati on. Moderate aortic valve stenosis. trivial tricuspid regurgitati on. Problem Diastolic heart failure (496972428) Unspecified diastolic (congestive) heart failure (I50.30) Active confirmed 04/26/2024- ECHOCARDIOG YANELI- LVEF of 60%. moderate mitral valve regurgitati on. Trace aortic valve regurgitati on. Moderate aortic valve stenosis. trivial tricuspid regurgitati on. Problem 629393216 Lupus (M32.9) Active confirmed Dx in [place] had butterfly rash on face Problem 795812575 Diabetic angiopathy (E11.51) Active confirmed [employer] 10/30/2023 right 0.81 left 0.89 Problem 52398947 Coronary artery disease of [place] artery of [place] heart with stable angina pectoris (I25.118) Active confirmed [place] x 2 has multiple stents 6-7 Problem Aortic valve disorder (6995433) Severe aortic stenosis (I35.0) Active confirmed Problem 35961512 Type 2 diabetes mellitus with hyperglycemia, without long-term current use of insulin (E11.65) Active confirmed Problem 817259215 Seasonal affective disorder (F33.8) Active confirmed Problem Morbid obesity (disorder) (872512687) Morbid (severe) obesity due to excess calories (E66.01) Active confirmed Problem 469615113 Stable angina (I20.89) Active confirmed Vital Signs Heart Rate 64 /min 05/11/2024 Renetta Sanchez 05/11/2024 09:06:30 AM EST > Temperature 98.7 degrees Fahrenheit 05/11/2024 Brittani Bender 05/11/2024 09:06:30 AM EST > Respiratory Rate 16 /min 05/11/2024 Shaq Sanchez 05/11/2024 09:06:30 AM EST > Blood pressure diastolic 80 mm Hg 05/11/2024 Brittani Garnett 05/11/2024 09:06:30 AM EST > Oximetry 97 % 05/11/2024 Renetta Sanchez 05/11/2024 09:06:30 AM EST > Height 57 inches 05/11/2024 Renetta Sanchez 05/11/2024 09:06:30 AM EST > Blood pressure systolic 131 mm Hg 05/11/2024 Brittani Bender 05/11/2024 09:06:30 AM EST > Weight 158 lbs 05/11/2024 Renetta Sanchez 05/11/2024 09:06:30 AM EST > BMI 34.19 kg/m2 05/11/2024 Renetta Sanchez 05/11/2024 09:06:30 AM EST > Encounters Encounter Location Date Provider Diagnosis [facility] [address] [place] [phone] 12/17/2023 Jo Ann Carver Type 2 diabetes mellitus with hyperglycemia, without long-term current use of insulin E11.65 [facility] [address] [place] [phone] 12/25/2023 Jo Ann Carver [facility] [address] [place] [phone] 12/25/2023 Jo Ann Carver Type 2 diabetes mellitus with hyperglycemia, without long-term current use of insulin E11.65 [facility] [address] [place] [phone] 12/29/2023 Jo Ann Carver [facility] [address] [place] [phone] 01/01/2024 Jo Ann Carver [facility] [address] [place] [address] 03/03/2024 Trinity Alvarez [facility] [address] [place] [phone] 03/03/2024 Jo Ann Carver [facility] [address] [place] [phone] 03/04/2024 Jo Ann Carver [facility] [address] [place] [phone] 03/04/2024 Jo Ann Carver Mixed hyperlipidemia E78.2 ; Coronary artery disease of [place] artery of [place] heart with stable angina pectoris I25.118 and Type 2 diabetes mellitus with hyperglycemia, without long-term current use of insulin E11.[address] [facility] [address] [place] [phone] 03/04/2024 Jo Ann Carver [facility] [address] [place] [phone] 03/04/2024 Jo Ann Cavrer [facility] [address] [place] [phone] 03/04/2024 Jo Ann Carver [facility] [address] [place] [phone] 03/15/2024 Jo Ann Carver [facility] [address] [place] [phone] 03/24/2024 Jo Ann Carver [facility] [address] [place] [phone] 03/24/2024 Jo Ann Carver [facility] [address] [place] [address] 03/28/2024 Jo Ann Carver [facility] [address] [place] [address] 04/04/2024 Jo Ann Carver [facility] [address] [place] [address] 04/04/2024 Jo Ann Carver [facility] [address] [place] [phone] 04/07/2024 Jo Ann Carver [facility] [address] [place] [phone] 04/15/2024 Hien Fine Low back pain M54.[address] [facility] [address] [place] [phone] 04/15/2024 Hien Fine [facility] [address] [place] [phone] 05/12/2024 Jo Ann Carver Type 2 diabetes mellitus with hyperglycemia, without long-term current use of insulin E11.65 ; Essential (primary) hypertension I10 and Acute lower urinary tract infection N39.0 [facility] [address] [place] [phone] 05/12/2024 Jo Ann Carver [facility] [address] [place] [phone] 05/13/2024 Jo Ann Carver [facility] [address] [place] [phone] 05/19/2024 Jo Ann Carver Type 2 diabetes mellitus with hyperglycemia, without long-term current use of insulin E11.65 [facility] [address] [place] [phone] 05/31/2024 Jo Ann Carver [facility] [address] [place] [phone] 06/02/2024 Jo Ann Carevr [facility] [address] [place] [phone] 06/02/2024 Jo Ann Carver [facility] [address] [place] [phone] 06/08/2024 Hien Fine Coronary artery disease of [place] artery of [place] heart with stable angina pectoris I25.118 [facility] [address] [place] [id number] 06/08/2024 Jo Ann Carver [facility] [address] [place] [phone] 06/09/2024 Jo Ann Carver Screening for respiratory condition Z13.83 [facility] [address] [place] [phone] 06/23/2024 Jo Ann Carver [facility] [address] [place] [phone] 07/08/2024 Jo Ann Carver [facility] [address] [place] [phone] 07/08/2024 Jo Ann Carver [facility] [address] [facility] [address] [place] [address] 07/11/2024 [facility] Carver [facility] [address] [place] [phone] 07/18/2024 Jo Ann Carver [facility] [address] [place] [phone] 08/01/2024 Jo Ann Carver [facility] [address] [place] [phone] 08/16/2024 Gian Bautista [facility] [address] [place] [phone] 08/18/2024 Gian Bautista [facility] [address] [place] [phone] 08/24/2024 Gian Bautista [facility] [address] [place] [phone] 08/25/2024 Gian Bautista [facility] [address] [place] [phone] 09/14/2024 Gian Bautista [facility] [address] [place] [phone] 11/07/2024 Gian Bautista [facility] [address] [place] [phone] 11/20/2024 Gian Bautista [facility] [address] [place] [phone] 04/26/2024 Jo Ann Carver Screening for cardiovascular condition Z13.6 [facility] [address] [place] [phone] 05/19/2024 Jo Ann Carver Type 2 diabetes mellitus with hyperglycemia, without long-term current use of insulin E11.65 ; Essential (primary) hypertension I10 and Acute lower urinary tract infection N39.0 [facility] [address] [place] [phone] 05/11/2024 Hien Fine Encounter for annual general medical examination without abnormal findings in adult Z00.00 ; Encounter for examination following treatment at hospital Z09 ; Severe aortic stenosis I35.0 ; Encounter for screening for osteoporosis Z13.820 ; Screen for colon cancer Z12.11 ; Encounter for hepatitis C screening test for low risk patient Z11.59 ; Encounter for vitamin deficiency screening Z13.21 ; Mixed hyperlipidemia E78.2 ; Type 2 diabetes mellitus with hyperglycemia, without long-term current use of insulin E11.65 ; Hypertensive heart disease with heart failure I11.0 ; Unspecified diastolic (congestive) heart failure I50.30 ; At risk for noncompliance Z91.89 and Diabetic retinopathy screening Z13.5 [facility] [address] [place] [phone] 04/08/2024 Hien Fine Essential (primary) hypertension I10 ; Encounter for examination following treatment at hospital Z09 and Muscle spasm M62.838 [facility] [address] [place] [phone] 01/01/2024 Jo Ann Carver Type 2 diabetes mellitus with hyperglycemia, without long-term current use of insulin E11.65 and Mixed hyperlipidemia E78.2 [facility] [address] [place] [phone] 03/03/2024 Trinity Kim Type 2 diabetes mellitus with hyperglycemia, without long-term current use of insulin E11.65 Assessments Encounter Date Diagnosis (ICD Code) Assessment Notes Treatment Notes Treatment Clinical Notes Section Notes 12/17/2023 Type 2 diabetes mellitus with hyperglycemia, without long-term current use of insulin (ICD-10 - E11.65) 12/25/2023 Type 2 diabetes mellitus with hyperglycemia, without long-term current use of insulin (ICD-10 - E11.65) 01/01/2024 Type 2 diabetes mellitus with hyperglycemia, without long-term current use of insulin (ICD-10 - E11.65) Uncontrolled, NON COMPLIANCE patient states non compliance as directed, patient enourage to be compliance with medication and diet recommendations. Patient was recommended to adjust treatment adding Long acting Insulin daily but patient refused. Continue with treatment as prescribed. Encouraged dietary and lifestyle modifications exercise as tolerated monitor home glucose bring log to next office visit. F/U 7 weeks A1c levels 03/03/2024 Type 2 diabetes mellitus with hyperglycemia, without long-term current use of insulin (ICD-10 - E11.65) New to me. currently on Glipizide 5 mg po twice daily. Add Jardiance 25 mg po daily. Low carb diet, accu-check twice daily. Lifestyle modifications discuss with the patient. 03/04/2024 Mixed hyperlipidemia (ICD-10 - E78.2) 05/11/2024 Encounter for annual general medical examination without abnormal findings in adult (ICD-10 - Z00.00) Patient was given a personalized prevention plan. Included in the 5 year treatment plan, the patient will continue health screenings as directed and continue to be monitored for chronic illnesses, education on healthy diet and exercise will be incorporated into clinic visits. 04/26/2024 Screening for cardiovascular condition (ICD-10 - Z13.6) 04/15/2024 Low back pain (ICD-10 - M54.50) 04/08/2024 Encounter for examination following treatment at hospital (ICD-10 - Z09) Reviewing patient 's hospital records and medication list reconciliation 04/08/2024 Essential (primary) hypertension (ICD-10 - I10) Stable. BP stable and controlled on current antihypertensive plan of care. Low Fat/LowSodium diet advised. Monitor and adjust tx as needed. 05/11/2024 Encounter for examination following treatment at hospital (ICD-10 - Z09) Reviewing patient 's hospital records and medication list reconciliation 05/12/2024 Type 2 diabetes mellitus with hyperglycemia, without long-term current use of insulin (ICD-10 - E11.65) 05/12/2024 Essential (primary) hypertension (ICD-10 - I10) 05/19/2024 Type 2 diabetes mellitus with hyperglycemia, without long-term current use of insulin (ICD-10 - E11.65) 05/19/2024 Type 2 diabetes mellitus with hyperglycemia, without long-term current use of insulin (ICD-10 - E11.65) 06/08/2024 Coronary artery disease of [place] artery of [place] heart with stable angina pectoris (ICD-10 - I25.118) 06/09/2024 Screening for respiratory condition (ICD-10 - Z13.83) 05/19/2024 Essential (primary) hypertension (ICD-10 - I10) 05/12/2024 Acute lower urinary tract infection (ICD-10 - N39.0) 04/08/2024 Muscle spasm (ICD-10 - M62.838) New Finding. Will continue with meds for pain PRN. Practice ROM exercises in the joint. Discussed disease progression. Hot Pads for 20 minutes few times a day. Stretching Exercises few times a day. Start Methocarbamol 750 MG Tablet as order. 05/11/2024 Severe aortic stenosis (ICD-10 - I35.0) Resolved. !07/04/2023 Procedures CCL TRANSCATHETER AORTIC VALVE REPLACEMENT. Hospital D/C ; Famotidine, Torsemide, prednisone 03/04/2024 Coronary artery disease of [place] artery of [place] heart with stable angina pectoris (ICD-10 - I25.118) AL x 2 has multiple stents 6-01/01/2024 Mixed hyperlipidemia (ICD-10 - E78.2) Stable continue Atorvastatin Patient encouraged to continue appropriate dietary and lifestyle modifications Weight loss encouraged low cholesterol diet. Instructed to avoid Carbohydrates, red meat, butter, fried foods, cheese and other foods high in saturated fats. 03/04/2024 Type 2 diabetes mellitus with hyperglycemia, without long-term current use of insulin (ICD-10 - E11.65) 05/11/2024 Encounter for screening for osteoporosis (ICD-10 - Z13.820) Female more than 65 years old. Female from 51 y/o, less than 65 years old with risk factors (Hip fracture, EtOH, low weight). 05/19/2024 Acute lower urinary tract infection (ICD-10 - N39.0) 05/11/2024 Screen for colon cancer (ICD-10 - Z12.11) Colon cancer screening with colonoscopy is recommended after age 45-[address] colonography every 5, Colonoscopy every 5-10 years, or with FOBT yearly. 05/11/2024 Encounter for hepatitis C screening test for low risk patient (ICD-10 - Z11.59) Hepatitis C screening with HCV Ab is indicated in patients 18-79 years old. One-time Screening. 05/11/2024 Encounter for vitamin deficiency screening (ICD-10 - Z13.21) Vitamin deficiency screening with Vitamin D, 25-Hydroxy and Vitamin B12 and Folate is indicated. 05/11/2024 Mixed hyperlipidemia (ICD-10 - E78.2) Stable on Lipid Lowering Agent. Continue as prescribed. Low fat diet advised. Monitor Lipid Profile 05/11/2024 Type 2 diabetes mellitus with hyperglycemia, without long-term current use of insulin (ICD-10 - E11.65) Worsening. Type 2 DM with hyperglycemia without use of insulin, with oral hypoglycemic drugs. DM poorly controlled A1C >9%. Prior A1C 10.7% Non/compliant with medication and diet. Log BS, FBS and specially; A1C is >10% and/or 2 h PP >300 mg/dL with date and time. Discuss ADA diet, goal exercise 20 min/d/5x/week.Recom mended yearly minimum podiatry and ophthalmology. Contunue glipiZIDE 5 MG Tablet and Jardiance 25 MG Tablet Start Lantus 20 Units, add 1 units every day until reach 124 mg/dL in Fasting Blood Sugar. 05/11/2024 Hypertensive heart disease with heart failure (ICD-10 - I11.0) Stable. 04/26/2024-ECHOCARD IOGRAM- LVEF of 60%. moderate mitral valve regurgitation. Trace aortic valve regurgitation. Moderate aortic valve stenosis. trivial tricuspid regurgitation. No changes in heart failure signs or symptoms. Yourweight is stable. You don't have chest pain or shortness of breath. Continue your daily weightchecks and treatment plan as recommended. 05/11/2024 Unspecified diastolic (congestive) heart failure (ICD-10 - I50.30) Stable. 04/26/2024-ECHOCARD IOGRAM- LVEF of 60%. moderate mitral valve regurgitation. Trace aortic valve regurgitation. Moderate aortic valve stenosis. trivial tricuspid regurgitation. No changes in heart failure signs or symptoms. Yourweight is stable. You don't have chest pain or shortness of breath. Continue your daily weightchecks and treatment plan as recommended. 05/11/2024 At risk for noncompliance (ICD-10 - Z91.89) Non compliance with dm diet and oral medication without consistency. 05/11/2024 Diabetic retinopathy screening (ICD-10 - Z13.5) Annual DM eye exam referral request created. Referral to Waste Water Operator has been given today. 05/11/2024 Other I have reviewe d and updated the HPI, Current Medications, PFSH, ROS and Preventive Medicine Screening Schedules done by my ancillary staff. 03/03/2024 Other I spent (15) minutes on this patient encounter I have reviewed and updated the HPI, Current Medications, PFSH, ROS and Preventive Medicine Screening Schedules done by my ancillary staff 04/08/2024 Other I have reviewed and updated the HPI, Current Medications, PFSH, ROS and Preventive Medicine Screening Schedules done by my ancillary staff 01/01/2024 Other I have reviewed and updated the HPI, Current Medications, PFSH, ROS and Preventive Medicine Screening Schedules done by my ancillary staff. I spent ( 13) minutes on this patient encounter Plan Of Treatment Pending Test Test Name Order Date Hemoglobin *IN HOUSE* 11/20/2024 COMPREHENSIVE METABOLIC PANEL 11/20/2024 Albumin/Creatinine Ratio, Random Urine [id number] and [id number] 11/20/2024 Future Test Test Name Order Date Spirometry Pre and Post By RT 06/16/2024 Insurance Providers Payer Name Payer Address Payer Phone Subscriber Number Group Number Insured Name Patient Relationship to Insured Coverage Start Date Coverage End Date [employer] RISK CAP MCR ADV PPO ASSIGNED [address] [address] [place] [address] [id number] MOY JARQUIN Self - patient is the insured 4 MEDICARE [place] FFS M[place]. [address] [place] [address] [id number] MOY JARQUIN Self - patient is the insured 7 Medical (General) History Medical History History ICD Code Diabetes fibromyalgia Crohn's disease Lupus was on Methotrexate in the past di d not tolerate well Hiatal Hernia AL x 2 s/p stent placement 6 or 7 does n ot recall where COVID x 2 Hyperlipidemia Surgical History Surgery Date(Month/Year) Bunion surgery right foot hardware remov al Appendix 1977 Valve surgery 04/2024 Hospitalization History Reason Date(Month/Year) [facility] (ear ache) 4 Replacement valves 05/03/2024 Bunion surgery right foot hardware remov al
--- OUTSIDE RECORDS SUMMARY | 2024-12-02 08:45 | XMS_ITS | Clinical Summary ---
Author Organization [facility] Address [address] [place] [address] Care Team Providers Care Graduation Coach Name Role Phone Patient, None Per Primary Care Provider Unavaila ble Allergies Active Allergy Reactions Criticality Noted Date Comments Angel Inhibitors Cough 12/31/2021 Doxycycline Rash Low 12/18/2020 Erythromycin Rash Low 12/08/2016 Gabapentin Other (See Comments) 04/02/2024 Brain fog, patient felt like she was drunk Iodinated Contrast Media Rash Low 11/07/2020 Leucine Rash Low 03/31/2020 Nickel Rash,Swelling Low 06/19/2020 Penicillins Rash Low 06/18/2013 Medications aspirin 81 MG Oral Tablet Chewable Chew 81 mg daily. Active atorvastatin (LIPITOR) 80 MG Oral Tablet Take 80 mg by mouth daily. 4 Active clopidogrel (PLAVIX) 75 MG Oral Tablet Take 75 mg by mouth daily. 4 Active famotidine (PEPCID) 20 MG Oral Tablet Take 20 mg by mouth as needed. 5 Active glipiZIDE (GLUCOTROL) 5 MG Oral Tablet Take 5 mg by mouth 2 times daily (before breakfast and dinner). 4 Active losartan (COZAAR) 25 MG Oral Tablet Take 25 mg by mouth daily. 4 Active metoprolol succinate (TOPROL-XL) 50 MG Oral Tablet Extended Release 24 Hour Take 50 mg by mouth daily. Active nitroGLYCERIN (NITROSTAT) 0.4 MG Sublingual Tablet Sublingual Place 0.4 mg under the tongue every 5 minutes as needed. 4 Active amLODIPine (NORVASC) 5 MG Oral Tablet Take 5 mg by mouth. 4 Active furosemide (LASIX) 20 MG Oral Tablet Take 20 mg by mouth every other day. 5 Active potassium chloride (KLOR-CON M) 10 MEQ Oral Tablet Extended Release 5 Active valsartan (DIOVAN) 40 MG Oral Tablet 5 Active mupirocin (BACTROBAN) 2 % External Ointment Apply a small amount to affected area(s). Twice a day 1 g 5 Active sulfamethoxazol e-trimethoprim (BACTRIM DS) 800-160 MG Oral Tablet Take 1 (one) tablet by mouth 2 times daily for 7 days. 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 07/21/2024 Encounters Date Type Department Care Team Description 11/08/2024 8:00 AM EDT - 11/08/2024 11:59 PM EDT Hospital Encounter [facility] [address] [id number] Isma Reyes MD Discharge Disposition: Discharge to Home or Self Care 10/31/2024 Telephone [facility] Primary [facility] - [address] [address] None, No Patient Contact follow up call 10/29/2024 9:55 AM EDT Office Visit [facility] - URGENT [facility] [address] [place] [address] Sneha Elizondo APRN Infected wound from Last 3 Months Social History Tobacco Use Types Packs/Day Years Used Date Smoking Tobacco: Never Smokeless Tobacco: Never Tobacco Cessation:Counseling Given: Not Answered Comments Unknown Sex and Gender Information Value Date Recorded Sex Assigned at Not on file Legal Sex Female 2:24 PM EST Gender Identity Not on file Sexual Orientation Not on file Last Filed Vital Signs Vital Sign Reading Time Taken Comments Blood Pressure 129/83 10/29/2024 10:08 AM EDT Pulse 57 10/29/2024 10:08 AM EDT Temperature 36.3 C (97.4 F) 10/29/2024 10:08 AM EDT Respiratory Rate 16 10/29/2024 10:08 AM EDT Oxygen Saturation 97% 10/29/2024 10:08 AM EDT Inhaled Oxygen Concentration - - Weight 71.7 kg (158 lb) 10/29/2024 10:08 AM EDT Height 144.8 cm (4' 9 ) 10/29/2024 10:08 AM EDT Body Mass Index 34.19 10/29/2024 10:08 AM EDT Plan of Treatment Upcoming Encounters Date Type Department Care Team (Late st Contact Info) Description 12/06/2024 10:30 AM EDT Appointment [facility] [address] [place] [address] Isma Reyes MD [address] [id number] Insurance MEDICARE [employer] CHOICE PPO Advance Directives For more information, please contact: [phone] Healthcare Agents on File Name Relationship Healthcare Agent Relationshi p Communication Nabil mckeon. Health Care Surrogate Care Teams Graduation Coach Relationship Specialty Start Date End Date Patient, None Per PCP - General 07/26/24
--- OUTSIDE RECORDS SUMMARY | 2024-12-02 08:45 | XMS_ITS | Encounter Summary ---
Author Organization [facility] Address [address] [place] [address] Phone Care Team Providers Care Auto Mechanic Apprentice Name Role Phone Unavailable Primary Care Provider Unavailabl e Encounter Details Date Type Department Care Team (Late st Contact Info) Description 04/03/2021 Orders Only [facility] [address] [place] [address] Conversion, Onbase Social History Tobacco Use Types [...] r Schedule OUTSIDE LAB SCAN Lab Ordered: 04/03/2021 documented as of this encounter Visit Diagnoses Not on filedocumented in this encounter
--- OUTSIDE RECORDS SUMMARY | 2024-12-02 08:45 | XMS_ITS | Encounter Summary ---
Author Organization [facility] Address [address] [place] [address] Phone Care Team Providers Care Filter Tender Jelly Name Role Phone Unavailable Primary Care Provider Unavailabl e Encounter Details Date Type Department Care Team (Late st Contact Info) Description 11/15/2021 Orders Only [facility] [address] [place] [address] Conversion, Onbase Social History Tobacco Use Types [...] r Schedule OUTSIDE LAB SCAN Lab Ordered: 11/15/2021 documented as of this encounter Visit Diagnoses Not on filedocumented in this encounter
--- OUTSIDE RECORDS SUMMARY | 2024-12-02 08:45 | XMS_ITS | Clinical Summary ---
Author Organization [facility] Address [address] [place], [place] [id number] Care Team Providers Care Milling Machine Tender Name Role Phone Tamica Amezquita CNP Primary Care Provider Jairon Webb DO Unavailable [phone] Adithya Gamboa MD Unavailable [phone] Allergies Active Allergy Reactions Criticality Noted Date Comments Angel Inhibitors Cough 12/31/2021 Doxycycline Rash 12/18/2020 Erythromycin Base Rash 06/18/2013 Iodine Rash 11/07/2020 Leucine Rash 03/31/2020 Nickel Swelling,Other: See Comments 021 Penicillins Rash 06/18/2013 Medications acetaminophen (TYLENOL) 500 mg tablet 2 tablets every 6 hours as needed. 1 Active atorvastatin (LIPITOR) 80 mg tablet Take 80 mg by mouth once daily. 1 Active folic acid/multivit-mi n/lutein (CENTRUM SILVER ORAL) Take 1 tablet by mouth once daily. Active clopidogrel (PLAVIX) 75 mg tablet Take 75 mg by mouth once daily. Active aspirin 81 mg chewable tablet Take 81 mg by mouth once daily. Active pioglitazone (ACTOS) 30 mg tablet Take 30 mg by mouth once daily. 1 Active ascorbic acid, vitamin C, (VITAMIN C) 500 mg tablet Take 500 mg by mouth once daily. 1 Active GABAPENTIN ORAL Take 100 mg by mouth daily at bedtime. Active cyanocobalamin, vitamin B-12, (VITAMIN B-12 ORAL) Take 1 tablet by mouth once daily. Active POTASSIUM CHLORIDE ORAL Take 20 mEq by mouth once daily. Active JARDIANCE 10 mg tablet Take 10 mg by mouth once daily. 2 Active metoprolol succinate ER (TOPROL XL) 50 mg 24 hr tablet Take 1 tablet by mouth once daily. 90 tablet 2 Active torsemide (DEMADEX) 20 mg tablet Take 20 mg by mouth once daily. Active Magnesium 250 mg tab Take 250 mg by mouth once daily. Active isosorbide mononitrate ER (IMDUR) 30 mg 24 hr tablet Take 1 tablet by mouth once daily. 90 tablet 2 Active nitroglycerin sublingual (NITROQUICK) 0.4 mg SL tablet Dissolve 1 tablet under the tongue every 5 minutes as needed. 30 tablet 11 2 Active Active Problems Problem Noted Date Diagnosed Date Obesity, Class II, BMI 35-39.9 01/23/2022 Obesity, Class I, BMI 30-34.9 11/16/2021 Coronary stent restenosis with uncertain cause 0 01/09/2021 Social History Tobacco Use Types Packs/Day Years Used Date Smoking Tobacco: Never Smokeless Tobacco: Never Tobacco Cessation:Counseling Given: Not Answered Alcohol Use Standard Drinks/Week Comments Yes 0 (1 standard drink = 0.6 oz pur e alcohol) every 3-4 months Area Deprivation Index Answer Date Ned rded National Score (1-100), lower number is lower ri sk 88 06/16/2022 State Score (1-10), lower number is lower risk N ot on file 06/16/2022 Data from: https://www.neighborhoodatlas.medicine.[facility].edu/. Last address used for calculation [address] 06/16/2022 Comments No Sex and Gender Information Value Date Recorded Sex Assigned at Not on file Legal Sex Female 9:17 AM EDT Gender Identity Not on file Sexual Orientation Not on file Last Filed Vital Signs Vital Sign Reading Time Taken Comments Blood Pressure 137/65 01/23/2022 11:00 AM EDT Pulse 75 01/23/2022 11:00 AM EDT Temperature 37.9 C (100.2 F) 01/23/2022 11:00 AM EDT 37.9 Respiratory Rate 16 01/23/2022 11:00 AM EDT Oxygen Saturation 96% 01/23/2022 7:40 AM EDT Inhaled Oxygen Concentration - - Weight 74.6 kg (164 lb 7.4 oz) 01/22/2022 10:54 AM EDT Height 144.8 cm (4' 9 ) 12/31/2021 9:26 AM EDT Body Mass Index 35.59 12/31/2021 9:26 AM EDT Plan of Treatment Health Maintenance Due Date Last Done Comments Anxiety Screening 08/01/1969 Depression Screening 08/01/1969 Hepatitis C Screening 08/01/1969 DTaP,Tdap,Td Vaccine (1 - Tdap) 08/01/[address] Colonography 08/01/1996 Cologuard (FIT-DNA) 08/01/1996 Fecal Occult Blood 08/01/1996 Lipid Screening 08/01/1996 Sigmoidoscopy 08/01/1996 Shingrix Vaccine (1 of 2) 08/01/2001 RSV Vaccine (1 - Risk 60-74 years 1-dose series) 2011 Pneumococcal Vaccine: 50+ (2 of 2 - PCV) 11/07/2011 11/06/2010 Medicare Annual Wellness Visit 07/23/2016 Bone Density Screening 08/01/2016 Colonoscopy 02/08/2021 02/09/2020, 02/09/2020 Colorectal Cancer Screening 02/08/2021 Covid-19 Vaccine (3 - 2023-2 5 season) 2024 12/17/2021, 05/21/2021 Advance Directive Discussion 05/25/2024 Diabetes Screening 01/23/2025 01/23/2022, 0 01/22/2022, 11/15/2021, Additional history exists Influenza Vaccine (#1) 2025 04/17/2008, 2006 Medical Devices Implanted Type Area Nurse Researcher Device Identifier Shelf Expiration Date Model / Serial / Lot Screw Screw Right: Bone - Foot Procedures Procedure Name Priority Date/Time Associated Diagnosis Comments BASIC METABOLIC PANEL Routine 01/23/2022 4:33 AM EDT from Last 3 Months or Most Recently Relevant to Health Maintenance Results * (ABNORMAL) BASIC METABOLIC PNL (01/23/2022 4:33 AM EDT) Glucose 227(H) 74 - 99 mg/dL 01/23/2022 6:04 AM [facility] Comment: The [place] Diabetes Association (ADA) provides guidance for cutoff values for fasting glucose and random glucose. The ADA defines fasting as no caloric intake for at least 8 hours. Fasting plasma glucose results between 100 to 125 mg/dL indicate increased risk for diabetes (prediabetes). Fasting plasma glucose results greater than or equal to 126 mg/dL meet the criteria for diagnosis of diabetes. In the absence of unequivocal hyperglycemia, results should be confirmed by repeat testing. In a patient with classic symptoms of hyperglycemia or hyperglycemic crisis, random plasma glucose results greater than or equal to 200 mg/dL meet the criteria for diagnosis of diabetes. Reference: Standards of Medical Care in Diabetes 2016, [place] [employer]. Diabetes Care. 2016.39(Suppl 1). BUN 29(H) 7 - 21 mg/dL 01/23/2022 6:04 AM [facility] Creatinine 1.17(H) 0.58 - 0.96 mg/dL 01/23/2022 6:04 AM [facility] Sodium 139 136 - 144 mmol/L 01/23/2022 6:04 AM [facility] Potassium 3.7 3.7 - 5.1 mmol/L 01/23/2022 6:04 AM [facility] Chloride 104 97 - 105 mmol/L 01/23/2022 6:04 AM [facility] CO2 20(L) 22 - 30 mmol/L 01/23/2022 6:04 AM [facility] Anion Gap 15 9 - 18 mmol/L 01/23/2022 6:04 AM [facility] Calcium, Total 9.8 8.5 - 10.2 mg/dL 01/23/2022 6:04 AM [facility] Estimated Glomerular Filtration Rate 50(L) >=60 mL/min/1. 73m 01/23/2022 6:04 AM [facility] Comment:Estimated Glomerular Filtration Rate (eGFR) is calculated using the 2020 CKD-EPI creatinine equation. This equation utilizes serum creatinine, sex, and age as parameters. The creatinine assay has traceable calibration to isotope dilution- mass spectrometry. Refer to KDIGO guidelines for clinical interpretation. In patients with unstable renal function, e.g. those with acute kidney injury, the eGFR may not accurately reflect actual GFR. Blood BLOOD SPECIMEN / Unknown Venipuncture / Unknown 01/23/2022 4:33 AM EDT 01/23/2022 4:56 AM EDT us Adithya Gamboa MD LABORATORY Final Res ult [facility] [id number] [place] [address], [place] from Last 3 Months or Most Recently Relevant to Health Maintenance Insurance MEDICARE [facility] Advance Directives Documents on File Type Date Recorded Patient Physician Office Secretary Expl anation Advance Directive(s) 01/16/2021 10:55 AM Care Teams Milling Machine Tender Relationship Specialty Start Date End Date Tamica Amezquita, MELINA [address] [place] [address] PCP - General Family Medicine 03/12/17 Jairon Webb DO [address] [address] Referring Cardiology 12/18/20 Adithya Gamboa MD [address] [address] Primary Staff Physician Cardiology 12/31/21
--- OUTSIDE RECORDS SUMMARY | 2024-12-02 08:45 | XMS_ITS | Encounter Summary ---
Author Organization [facility] Address [address] [place] [address] Phone Care Team Providers Care Hand Twister Name Role Phone Unavailable Primary Care Provider Unavailabl e Encounter Details Date Type Department Care Team (Late st Contact Info) Description 03/23/2021 Orders Only [facility] [address] [place] [address] Conversion, Onbase Social History Tobacco Use Types [...] r Schedule OUTSIDE LAB SCAN Lab Ordered: 03/23/2021 documented as of this encounter Visit Diagnoses Not on filedocumented in this encounter
--- OUTSIDE RECORDS SUMMARY | 2024-12-02 08:45 | XMS_ITS | Encounter Summary ---
Author Organization [facility] Address [address] [id number] Care Team Providers Care Coding Auditor Name Role Phone Patient, None Per Primary Care Provider Unavaila ble Reason for Referral * Referral - New Request Specialty Diagnoses / Procedures Referred By Contac t Referred To Contact Diagnoses CAD in eyak artery Procedures ECG - Adult Albert Joe MD [address] [id number] Phone: tel: fax: Referral ID Status Reason Start Date Expiration Date V isits Requested Visits Authorized [id number] New Request 07/21/2024 07/21/2025 1 1 * - New Request Specialty Diagnoses / Procedures Referred By Contac t Referred To Contact Diagnoses CAD in eyak artery Procedures Type and Screen Albert Joe MD [address] [phone] Phone: tel: fax: Referral ID Status Reason Start Date Expiration Date V isits Requested Visits Authorized [id number] New Request 07/21/2024 07/21/2025 1 1 Encounter Details Date Type Department Care Team (Late st Contact Info) Description 07/21/[address] [facility] - [facility] [address], [place] [address] Albert Joe MD [address] [address] [place] [address] CAD in eyak artery Social History Tobacco Use Types Packs/Day Years Used Date Smoking Tobacco: Never Assessed Comments Unknown Sex and Gender Information Value Date Recorded Sex Assigned at Not on file Legal Sex Female 2:24 PM EST Gender Identity Not on file Sexual Orientation Not on file documented as of this encounter Plan of Treatment Upcoming Encounters Date Type Department Care Team (Late st Contact Info) Description 12/06/2024 10:[address] [facility] - [facility] [address] [place] [address] Isma Reyes MD [address] [place] [address] Scheduled Orders Name Type Priority Associated Diagnoses Orde r Schedule ECG - Adult ECG Routine CAD in eyak artery Expected: 07/21/2024, Expires: 07/21/2025 documented as of this encounter Results * Type and Screen (07/27/2024 11:05 AM EST) ABO Grouping O 07/27/2024 12:21 PM [facility] Rh Type Positive 07/27/2024 12:21 PM [facility] Antibody Screen Negative 07/27/2024 12:21 PM [facility] Specimen Expiration 2024-07-30 23:59 07/27/2024 12:21 PM [facility] Blood Venipuncture / Unknown 07/27/2024 11:05 AM EST 07/27/2024 11:15 AM EST us Albert Joe MD BLOOD BANK ORDERABLES Edited Re sult - Final [facility] * PROTIME-INR (07/27/2024 11:05 AM EST) Prothrombin Time 13.4 11.6 - 14.6 SECONDS 07/27/2024 11:37 AM EST [facility] INR 0.9 0.9 - 1.1 07/27/2024 11:37 AM EST [facility] Blood Venipuncture / Unknown 07/27/2024 11:05 AM EST 07/27/2024 11:15 AM EST us Albert Joe MD BLOOD ORDERABLES Final Result [facility], [address] [place] [address], [facility] [phone] * (ABNORMAL) Basic Metabolic Panel (07/27/2024 11:05 AM EST) Glucose 192(H) 74 - 106 MG/DL 07/27/2024 11:47 AM EST [facility] Urea Nitrogen 29(H) 7 - 18 MG/DL 07/27/2024 11:47 AM EST [facility] Creatinine 1.38(H) 0.50 - 1.02 mg/dL 07/27/2024 11:47 AM EST [facility] Calcium 10.0 8.5 - 10.1 MG/DL 07/27/2024 11:47 AM EST [facility] Sodium 136 136 - 145 MMOL/L 07/27/2024 11:47 AM EST [facility] Potassium 4.2 3.5 - 5.1 MMOL/L 07/27/2024 11:47 AM EST [facility] Chloride 104 98 - 107 MMOL/L 07/27/2024 11:47 AM EST [facility] CO2 24 21 - 32 MMOL/L 07/27/2024 11:47 AM EST [facility] BUN/Creatinine Ratio 21.0 7.8 - 25.0 (CALC) 07/27/2024 11:47 AM EST [facility] Anion Gap 12 5 - 15 MMOL/L 07/27/2024 11:47 AM EST [facility] EGFR (CKD-EPI) 41(L) >=60 ML/MIN/1.7 3M2 07/27/2024 11:47 AM EST [facility] Blood Venipuncture / Unknown 07/27/2024 11:05 AM EST 07/27/2024 11:15 AM EST us Albert Joe MD BLOOD ORDERABLES Final Result [facility], [facility] [place] [address], [facility] [phone] documented in this encounter Visit Diagnoses Diagnosis CAD in eyak artery Coronary atherosclerosis of eyak coronary artery documented in this encounter Care Teams Coding Auditor Relationship Specialty Start Date End Date Patient, None Per PCP - General 07/26/24 documented as of this encounter
--- OUTSIDE RECORDS SUMMARY | 2024-12-02 08:45 | XMS_ITS | Referral Summary ---
Author Organization [facility] Address [address] [place] [address] Care Team Providers Care Building Construction Ironworker Name Role Phone Patient, None Per Primary Care Provider Unavaila ble Encounters Date Type Department Care Team Description 11/08/2024 8:00 AM EDT - 11/08/2024 11:59 PM EDT Hospital Encounter [facility] - WOUND CARE & [facility] [address] [place] [address] Isma Reyes MD Discharge Disposition: Discharge to Home or Self Care 10/31/2024 Telephone [facility] Primary Care - [address] [address] None, No Patient Contact follow up call 10/29/2024 9:55 AM EDT Office Visit [facility] - URGENT CARE [address] [place] [address] Sneha Elizondo APRN Infected wound from Last 3 Months Allergies Active Allergy Reactions Criticality Noted Date [...] Problem Noted Date Diagnosed Date CAD in [place] artery 07/21/2024 Social History Tobacco Use Types Packs/Day Years [...] Info) Description 12/06/2024 10:30 AM EDT Appointment [facility] - [facility] [address] [place] [address] Isma Reyes MD [address] [id number] Insurance MEDICARE [employer] CHOICE PPO Advance Directives For more information, please contact: [phone] Healthcare Agents on File Name Relationship Healthcare Agent Relationshi p Communication Nabil mckeon. Health Care Surrogate Care Teams Building Construction Ironworker Relationship Specialty Start Date End Date Patient, None Per PCP - General 07/26/24
--- OUTSIDE RECORDS SUMMARY | 2024-12-02 08:45 | XMS_ITS | Clinical Summary ---
Author Organization [facility] Address [address] [place] [address] Phone Care Team Providers Care Cartoon Artist Name Role Phone Unavailable Primary Care Provider Unavailabl e Social History Tobacco Use Types Packs/Day Years Used Date Smoking Tobacco: Never Assessed Comments Unknown Sex and Gender Information Value Date Recorded Sex Assigned at Not on file Legal Sex Female 5:14 AM EST Gender Identity Not on file Sexual Orientation Not on file Last Filed Vital Signs Vital Sign Reading Time Taken Comments Blood Pressure 126/82 02/20/2022 10:19 AM EDT Pulse 72 02/20/2022 10:19 AM EDT Temperature - - Respiratory Rate - - Oxygen Saturation - - Inhaled Oxygen Concentration - - Weight 70.3 kg (155 lb) 02/20/2022 10:19 AM EDT Height 144.8 cm (4' 9 ) 02/20/2022 10:19 AM EDT Body Mass Index 33.54 02/20/2022 10:19 AM EDT Plan of Treatment Health Maintenance Due Date Last Done Comments Bone Density Scan 1951 CT Colonography 1950 Colonoscopy 1951 Colorectal Cancer Screening 1950 FIT-DNA (Cologuard) 1950 FIT 1951 Lipid Panel 1950 Sigmoidoscopy 1950 Yearly Adult Physical 1950 Hepatitis C Screening 08/01/1969 DTaP/Tdap/Td Vaccines (1 - Tdap) 08/01/1973 Mammogram 1991 Pneumococcal Vaccine (1 of 1 - PCV) 08/01/2001 Zoster Vaccines (1 of 2) 08/01/2001 RSV High Risk: (Elderly (60+ ) or Population) (1 - Risk 60-74 years 1-dose series) 2011 COVID-19 Vaccine (2023-2 5 season) 2024 Influenza Vaccine (#1) 2025 HIB Vaccines Aged Out No longer eligi ble based on patient's age to complete this topic HPV Vaccines (No Doses Required) Completed Hepatitis A Vaccines Aged Out No long er eligible based on patient's age to complete this topic Hepatitis B Vaccines Aged Out No long er eligible based on patient's age to complete this topic IPV Vaccines Aged Out No longer eligi ble based on patient's age to complete this topic Meningococcal Vaccine Aged Out No lewis carlito eligible based on patient's age to complete this topic Rotavirus Vaccines Aged Out No longer eligible based on patient's age to complete this topic Advance Directives For more information, please contact: [phone] (Available ) Documents on File Type Date Recorded 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
--- OUTSIDE RECORDS SUMMARY | 2024-12-02 08:45 | XMS_ITS | Encounter Summary ---
Author Organization [facility] Address [address] [place] [address] Phone Care Team Providers Care Cylinder Devalver Name Role Phone Unavailable Primary Care Provider Unavailabl e Encounter Details Date Type Department Care Team (Late st Contact Info) Description 04/02/2021 Orders Only [facility] [address] [place] [address] Conversion, Onbase Social History Tobacco Use Types [...] r Schedule OUTSIDE LAB SCAN Lab Ordered: 04/02/2021 documented as of this encounter Visit Diagnoses Not on filedocumented in this encounter
--- OUTSIDE RECORDS SUMMARY | 2024-12-02 08:45 | XMS_ITS | Encounter Summary ---
Author Organization [facility] Address [address] [place] [address] Phone Care Team Providers Care Butt Maker Name Role Phone Unavailable Primary Care Provider Unavailabl e Encounter Details Date Type Department Care Team (Late st Contact Info) Description 12/18/2020 Orders Only [facility] [address] [place] [address] Conversion, Onbase Social History Tobacco Use Types [...] r Schedule OUTSIDE LAB SCAN Lab Ordered: 12/18/2020 documented as of this encounter Visit Diagnoses Not on filedocumented in this encounter
--- OUTSIDE RECORDS SUMMARY | 2024-12-02 08:45 | XMS_ITS | Clinical Summary ---
Author Organization [employer] Address [id number] [address] [place] [address] Care Team Providers Care Operator Helper Name Role Phone LindseyTamica rosenthal FRACTIONATING STILL OPERATOR-SUPERVISOR CARTOGRAPHY Primary Care Provider Allergies Active Allergy Reactions Criticality Noted Date Comments Erythromycin 12/08/2016 Penicillins 12/08/2016 Medications metFORMIN XR (GLUCOPHAGE-XR) 500 mg 24 hr tablet 12/30/2016 Active nystatin (MYCOSTATIN) ointment 12/30/2016 Active aspirin (ASPIR-81 ORAL) daily. Acti ve amLODIPine (NORVASC) 5 mg tablet Take 5 mg by mouth daily. 01/24/2020 Active hydroCHLOROthiaz swathi (MICROZIDE) 12.5 mg capsule 12.5 mg as needed. 01/24/2020 Active losartan (COZAAR) 100 mg tablet Take 100 mg by mouth daily. 01/24/2020 Active Active Problems Problem Noted Date Diagnosed Date Arachnoid cyst 03/01/2018 Dizziness of unknown cause 03/01/2018 Numbness of face 03/01/2018 Heart murmur 03/01/2018 Tension headache 10/13/2017 Diverticulosis large intesti ne w/o perforation or abscess w/o bleeding 01/21/2017 Vaginal bleeding 12/08/2016 Type 2 diabetes mellitus 12/08/2016 Family History * Patient is adopted Relation Name Status Comments Father Mother Social History Tobacco Use Types Packs/Day Years Used Date Smoking Tobacco: Never Smokeless Tobacco: Never Alcohol Use Standard Drinks/Week Comments Yes 0 (1 standard drink = 0.6 oz pur e alcohol) 3 GLASSES 2-3 MONTHS Childcare Answer Date Recorded Childcare Unknown 11/03/2018 Employment Answer Date Recorded Employment Unknown 11/03/2018 Purpose - Life Answer Date Recorded Purpose and direction in life Unknown Comments No Sex and Gender Information Value Date Recorded Sex Assigned at Not on file Legal Sex Female 11:58 AM EDT Gender Identity Not on file Sexual Orientation Not on file Last Filed Vital Signs Vital Sign Reading Time Taken Comments Blood Pressure 140/65 03/05/2021 10:24 AM EDT Pulse 60 03/05/2021 10:24 AM EDT Temperature 37.3 C (99.1 F) 02/09/2020 7:11 AM EDT Respiratory Rate 17 02/09/2020 9:22 AM EDT Oxygen Saturation 96% 02/09/2020 9:22 AM EDT Inhaled Oxygen Concentration - - Weight 70.3 kg (155 lb) 03/05/2021 10:24 AM EDT Height 144.8 cm (4' 9 ) 03/05/2021 10:24 AM EDT Body Mass Index 33.54 03/05/2021 10:24 AM EDT Plan of Treatment Health Maintenance Due Date Last Done Comments Diabetic Ophthalmology Exam 1950 Statin Use: Diabetic 1951 Depression Screening 1963 Tobacco Screening 1963 Adult BMI Screening 08/01/1969 Diabetic Foot Exam 08/01/1969 DTaP,Tdap and Td Vaccines (1 - Tdap) 08/01/1970 Zoster (Shingles) Vaccine (1 of 2) 08/01/2001 Fall Risk Screening 08/01/2016 Influenza Vaccine 01/23/2025 04/17/2008, 03/22/2007 Medical Devices Not on file Insurance COMMERCIAL MEDICARE Care Teams Operator Helper Relationship Specialty Start Date End Date Tamica Amezquita APRN-SUPERVISOR CARTOGRAPHY PCP - General Nurse Practitioner 12/08/16
--- OUTSIDE RECORDS SUMMARY | 2024-12-02 08:45 | XMS_ITS | Encounter Summary ---
Author Organization [facility] Address [address] [place] [address] Phone Care Team Providers Care Heating Plant Superintendent Name Role Phone Unavailable Primary Care Provider Unavailabl e Encounter Details Date Type Department Care Team (Late st Contact Info) Description 06/20/2020 Orders Only [facility] [address] [place] [address] Conversion, Onbase Social History Tobacco Use Types [...] r Schedule OUTSIDE LAB SCAN Lab Ordered: 06/20/2020 documented as of this encounter Visit Diagnoses Not on filedocumented in this encounter
--- OUTSIDE RECORDS SUMMARY | 2024-12-02 08:45 | XMS_ITS | Patient Health Record ---
Author Organization [facility] Address [address] [place] [address] Care Team Providers Care Signal Fitter Name Role Phone NONE, NONE Primary Care Provider TAE Adamson Unavailable [phone] ALLERGIES No Known Allergies REASON FOR REFERRAL No Information MEDICATIONS Medication SIG (Take, Route, Frequency, Duration) Notes Start Date End Date Status Albuterol Sulfate HFA 108 (90 Base) MCG/ACT 1 puff as needed Inhalation every 4 hrs Active Baby Aspirin Active Famotidine Active amLODIPine Besylate 5 MG 1 tablet Orally Once a day Active Isosorbide Dinitrate 30 [...] before breakfast Orally Once a day Active SOCIAL HISTORY Tobacco Use: Social History [...] Never (0 point) Points 2 Interpretation Negative PROBLEMS Problem Type ICD Code Onset Dates Problem Status W/U Status Risk SNOMED Code Notes Problem Essential (primary) hypertension (I10) Active confirmed Essential hypertension (05398061) manage with meds Problem Cardiac murmur, unspecified (R01.1) Active confirmed Heart murmur (finding) (91657826) not allergic to seth. allergic to rhodium. Would avoid this. Problem Allergy, unspecified, initial encounter (T78.40XA) Active confirmed Allergy (238038126) Given the pt's history of having swelling and redness after a nickel allegra placement during pt's foot surgery that required removal of the nickel allegra. Pt may have a nickel/meta l allergy. Will order a metal patch test for the pt. Problem Other hyperlipidemia (E78.49) Active confirmed Hyperlipidemia (44795388) per pcp PLAN OF TREATMENT No Information Insurance Providers Payer Name Payer Address Payer Phone Subscriber Number Group Number Insured Name Patient Relationship to Insured Coverage Start Date Coverage End Date [employer] [place] PPO [address] [address] [place] [address] [id number] Sneha Grissom Self - patient is the insured 4 4 MEDICAL (GENERAL) HISTORY Medical History History ICD Code Heart Disease Diabetes hypercholesterolemia Hypertension Surgical History Surgery Date(Month/Year) Bunion Removal
--- OUTSIDE RECORDS SUMMARY | 2024-12-02 08:46 | XMS_ITS | Clinical Summary ---
[facility] Organization [facility] Address [address] [place] [address] Care Team Providers Care Manager Diesel Name Role Phone Jo Ann Bautista MD Primary Care Provider [phone] Albert Jasmine MD Unavailable Franky Hameed MD Unavailable [phone] Allergies Active Allergy Reactions Criticality Noted Date Comments Angel Inhibitors Cough 12/31/2021 Doxycycline Rash Low 12/18/2020 Erythromycin Base Rash Low 06/18/2013 Iodine Rash Low 11/07/2020 Leucine Rash Low 03/31/2020 Nickel Other (See Comments) ,Tongue and Throat Swelling 06/19/2020 Penicillins Rash Low 06/18/2013 Medications amLODIPine (NORVASC) 5 mg tablet Take 5 mg total (1 tablet) by mouth daily. 03/24/2024 Active losartan (COZAAR) 25 mg tablet Take 25 mg total (1 tablet) by mouth daily. Active atorvastatin (LIPITOR) 80 mg tablet Take 80 mg total (1 tablet) by mouth daily. Active clopidogreL (PLAVIX) 75 mg tablet Take 75 mg total (1 tablet) by mouth daily. Active metoprolol succinate (TOPROL-XL) 50 mg 24 hr tablet Take 50 mg total (1 tablet) by mouth daily. Active albuterol (PROVENTIL HFA;VENTOLIN HFA; PROAIR HFA) 90 mcg/actuation inhaler Inhale into the lungs as needed. 03/07/2024 Active nitroGLYCERIN (NITROSTAT) 0.[address] under the tongue every 5 (five) minutes as needed. Active glipiZIDE (GLUCOTROL) 5 mg tablet Take 5 mg total (1 tablet) by mouth 2 (two) times daily. 03/04/2024 Active aspirin 81 mg chewable tablet Take 81 mg total (1 tablet) by mouth EVERY 24 HOURS. Active Active Problems Problem Noted Date Diagnosed Date Aortic stenosis, severe 05/03/2024 Social History Tobacco Use Types Packs/Day Years Used Date Smoking Tobacco: Never Assessed PHQ-2 Answer Date Recorded PHQ-9 Total Score 0 04/01/2024 Comments Unknown Sex and Gender Information Value Date Recorded Sex Assigned at Not on file Legal Sex Female 10:51 AM EDT Gender Identity Not on file Sexual Orientation Not on file Last Filed Vital Signs Vital Sign Reading Time Taken Comments Blood Pressure 142/64 05/04/2024 9:02 AM EST Pulse 71 05/04/2024 9:02 AM EST Temperature 36.6 C (97.9 F) 05/04/2024 9:02 AM EST Respiratory Rate 18 05/04/2024 9:02 AM EST Oxygen Saturation 98% 05/04/2024 9:02 AM EST Inhaled Oxygen Concentration - - Weight 72.3 kg (159 lb 4.8 oz) 05/03/2024 11:09 AM EST Height 144.8 cm (4' 9 ) 05/03/2024 11:09 AM EST Body Mass Index 34.47 05/03/2024 11:09 AM EST Plan of Treatment Health Maintenance Due Date Last Done Comments Breast Cancer Screening 1950 Cologuard 1950 FIT 1951 FOBT 1950 Flex Sigmoidoscopy 1950 Medicare Annual Wellness (AWV) 1950 IMM SERIES: MMR Vaccines (1 of 1 - Standard series) 08/01/1952 IMM SERIES: Varicella Vaccin es (1 of 2 - 13+ 2-dose series) 08/01/1964 HEPATITIS C SCREENING 08/01/1969 Nursing Social Assessment 08/01/1969 Weight Management (Adult) 08/01/1969 IMM SERIES: DTAP/TDAP/TD/DTP (1 - Tdap) 08/01/1970 Annual Exam for 40yo+ 1991 Colonoscopy 08/01/2001 Colorectal Cancer Screening 08/01/2001 IMM SERIES: Zoster (1 of 2) 08/01/2001 Pneumococcal Vaccine 65+ (2 of 2 - PCV) 11/07/2011 11/06/2010 DEXA Scan Screening 08/01/2016 Falls Risk Assessment 08/01/2016 GLAUCOMA SCREENING 67+ YR 08/01/2018 IMM SERIES: SARS-COV2 and CO VID-19 vaccines ( season) 2024 Influenza Vaccine (Season Ended) 2024 Depression Screening & Follow Up 04/01/2025 04/01/20 24 IMM SERIES: HIB Vaccines Aged Out No longer eligible based on patient's age to complete this topic IMM SERIES: HPV Vaccines Aged Out No longer eligible based on patient's age to complete this topic IMM SERIES: Hepatitis A Vaccine Aged Out No longer eligible based on patient's age to complete this topic IMM SERIES: Hepatitis B Vaccine Aged Out No longer eligible based on patient's age to complete this topic IMM SERIES: Meningococcal ACWY Aged Out No longer eligible based on patient's age to complete this topic IMM SERIES: Meningococcal B Vaccines Aged Out No longer eligible b ased on patient's age to complete this topic IMM SERIES: Polio Vaccines Aged Out N o longer eligible based on patient's age to complete this topic IMM SERIES: Rotavirus Vaccines Aged Out No longer eligible based on patient's age to complete this topic Insurance Care Teams Manager Diesel Relationship Specialty Start Date End Date Jo Ann Bautista MD [address] [facility] [address] [place] [address] PCP - General Religious Ritual Slaughterer 02/02/24 Albert Jasmine MD [address] [place] [address] Cardiovascular Surgery 02/10/24 Franky Hameed MD [address] [facility] [address] [place] [address] Cardiovascular Disease 05/19/24
--- OUTSIDE RECORDS SUMMARY | 2024-12-02 08:46 | XMS_ITS | Patient Health Record ---
Author Organization [facility] Address [address] [address] Support Name Relationship Address Phone Sneha Grissom Guarantor Unknown [phone] Reason For Referral No Information Plan Of Treatment No Information Insurance Providers Payer Name Payer Address Payer Phone Subscriber Number Group Number Insured Name Patient Relationship to Insured Coverage Start Date Coverage End Date [employer] [address] [address] [place] [address] [id number] [id number] Sneha Grissom Self - patient is the insured
[2024-12-02 10:59] LABS: Hematocrit 33.9 % (36.0-48.0); Hemoglobin 11.0 g/dL (12.0-16.0); Immature Granulocytes Abs Auto 0.01 10^3/uL (0.00-0.03); Immature Granulocytes Pct Auto 0.2 % (0.0-0.5); Lymphocytes Absolute Auto 1.7 10^3/uL (1.2-3.8); Mean Corpuscular HGB Conc 32.4 g/dL (29.9-35.2); Mean Corpuscular Hemoglobin 26.6 pg (26.7-34.0); Mean Corpuscular Volume 81.9 fL (81.0-99.0); Platelet Count 236 10^3/uL (150-450); Red Blood Count 4.14 10^6/uL (4.20-5.40); White Blood Count 5.1 10^3/uL (4.0-11.0)
[2024-12-02 11:05] LABS: Glucose Urine UA 500 mg/dL (NEGATIVE)
[2024-12-02 11:08] LABS: Alanine Aminotransferase 24 U/L (14-59); Albumin Globulin Ratio 0.6; Albumin Level 2.5 g/dL (3.4-5.0); Alkaline Phosphatase 96 U/L (46-116); Anion Gap 15.7; Aspartate Amino Transferase 26 U/L (15-37); Blood Urea Nitrogen 15.0 mg/dL (7.0-18.0); Calcium 9.0 mg/dL (8.5-10.1); Carbon Dioxide 24.9 mmol/L (21.0-32.0); Chloride 105 mmol/L (98-107); Estimated GFR (African America 51 (>=60 mL/min/1.73m^2); Estimated GFR (Non-African Ame 42 (>=60 mL/min/1.73m^2); Globulin 4.5 g/dL; Glucose 279 mg/dL (74-106); Potassium 3.6 mmol/L (3.5-5.1); Sodium 142 mmol/L (136-145); Total Protein 7.0 g/dL (6.4-8.2)
[2024-12-02 11:29] LABS: Cast Seen? NONE SEEN #/LPF (NONE SEEN); Crystals Seen? None Seen #/HPF (None Seen); Urine Culture Indicated NO
== END 2024-12-02 08:40 | disposition home or self-care (01) ==
LOC: LAB 08:42
PROVIDERS: PCP Nurse Practitioner; Visit Provider Nurse Practitioner
DX: D50.9 Iron deficiency anemia, unspecified (principal); I10 Essential (primary) hypertension; E11.69 Type 2 diabetes mellitus with other specified complication
CPT/HCPCS: 36415; 80053; 81001; 85025